=== PATIENT | male | born 1955 | race Caucasian/White ===

== ENCOUNTER → 2017-01-11 | Outpatient (CLI) | payer OTHER ==
[~2017-01-11] VITALS: Ht 177.8 cm; Wt 92.0 kg
[~2017-01-11] MED LIST: ASPI-232 PO; ATOR-22 PO; CLBCRM30 EXT; EZET10TA63 PO; FENO160T PO; FLM4 PO; GLIM2TAB2 PO; LISI-789 PO; METF500T5 PO; MODA1TAB PO; MULT-506 PO; PARO1TAB29 PO; PRLSR20 PO; PSYL55.43; SITA100T3 PO; SOLI5TAB2 PO
[2017-01-11 15:17] VITALS: BP 136/87; PULSE 92; Ht 177.8 cm; Wt 92.0 kg
== END | disposition home or self-care (01) ==
LOC: C.NEUR 14:29
PROVIDERS: ATTEND Physician Assistant
DX: G47.33 Obstructive sleep apnea (adult) (pediatric) (principal); G47.10 Hypersomnia, unspecified

== ENCOUNTER → 2018-01-17 | Outpatient (CLI) | payer OTHER ==
[~2018-01-17] VITALS: Ht 177.8 cm; Wt 109.2 kg
[2018-01-17 15:49] VITALS: BP 122/78; PULSE 101; Ht 177.8 cm; Wt 109.2 kg
== END | disposition home or self-care (01) ==
LOC: C.NEUR 15:21
PROVIDERS: ATTEND Internal Medicine Pulmonary Disease
DX: G47.33 Obstructive sleep apnea (adult) (pediatric) (principal); G47.10 Hypersomnia, unspecified; G47.30 Sleep apnea, unspecified; E66.9 Obesity, unspecified

== ENCOUNTER 2018-11-03 04:56 | Inpatient (IN) ==
--- NOTE | 2018-09-23 14:48 | Anesthesiology Consultation ---
Date of Service September 23, 2018 Assessment & Plan (1) Encounter for pre-operative examination: Chart Review Chart Review: Acceptable Risk for Surgery and Patient seen in Pre Admission Testing Teaching & Discussion Instructed NPO after midnight before surgery, except medications with 15 cc of water. Medication instructions provided according to the PAT guidelines. History Surgery Operation Date: 11/03/18 09:00 Proposed Procedures p Left Total Knee Arthroplasty - Seven Wing MD Height/Weight Height: 5 ft 9 in Weight: 108.2 kg Allergies Allergy/AdvReac Type Severity Reaction Status Date / Time No Known Allergies Allergy Unknown Verified 09/23/18 07:36 Medications Home Medications Medication Instructions Recorded Confirmed Last Taken aspirin [Aspir-Low] 81 mg PO QAM 09/23/18 09/23/18 Unknown atorvastatin 40 mg PO 09/23/18 09/23/18 Unknown dulaglutide [Trulicity] 1 dose SUBCUT WK 09/23/18 09/23/18 Unknown empagliflozin [Jardiance] 10 mg PO QAM 09/23/18 09/23/18 Unknown fenofibrate 160 mg PO HS 09/23/18 09/23/18 Unknown fesoterodine [Toviaz] 8 mg PO QAM 09/23/18 09/23/18 Unknown finasteride 5 mg PO QAM 09/23/18 09/23/18 Unknown glimepiride 2 tab PO QAM 09/23/18 09/23/18 Unknown lisinopril 2.5 mg PO QAM 09/23/18 09/23/18 Unknown metformin 2 tab PO BID 09/23/18 09/23/18 Unknown modafinil 200 mg PO QAM 09/23/18 09/23/18 Unknown omega 0-xla-stu-fish oil [Fish Oil] 2 cap PO HS 09/23/18 09/23/18 Unknown omeprazole 20 mg PO QAM 09/23/18 09/23/18 Unknown sertraline 50 mg PO QAM 09/23/18 09/23/18 Unknown tamsulosin [Flomax] 0.4 mg PO 09/23/18 09/23/18 Unknown Past Medical History Medical History BPH (benign prostatic hyperplasia) Cancer KIDNEY CANCER, S/P NEPHRECTOMY 2007 Cardiac murmur " A CHILD" PER PT, BUT I/ MURMUR NOTED ON EXAM, MILD AR ON 2016 STRESS TEST. Depression Diabetes mellitus, type 2 GERD (gastroesophageal reflux disease) Gout Hearing deficit Hyperlipidemia Hypertension Pt denies--on Lisinopril for kidney protection 2/2 diabetes Osteoarthritis Sleep apnea CPAP Past Family History Family History Mother Family history of diabetes mellitus Father Family history of diabetes mellitus Past Surgical History Surgical History History of adenoidectomy History of carpal tunnel release History of colonoscopy History of herniorrhaphy INGUINAL History of nephrectomy LEFT History of repair of rotator cuff RT/LEFT History of tonsillectomy Hx of vasectomy Past Anesthesia History No Hx of Anesthesia Complications and No Family Hx of Anesthesia Complications History of PONV No Motion Sickness Screening History of Motion Sickness: Yes Social History Smoking Status: Never smoker Do You Dip or Chew Tobacco: No Hx Alcohol Use: No Hx Substance Use: No substance use type: does not use Exercise / Class Metabolic Activity II 4-5 Yardwork/Stairs/Walk up hill (no CP or SOB with stairs, yardwork.) Review of Systems Pt denies any recent chest pain, shortness of breath, palpitations, cough, fever or URI. Pt had stomach flu week of 09/16/18 Physical Exam Vital Signs BP: 109/69 P: 85 SPO2: 96% RA T: 98.2 F R: 20 ENMT Mouth: no dental restorations, no chipped teeth and no loose teeth Thyromental Distance: > or= 3.5 Finger Breadths (4) Mallampati Class: III Neck normal visual inspection; neck extension not limited Respiratory normal respiratory effort Auscultation: lungs clear to auscultation bilaterally and + diminished lung sounds (slightly, B/L, more diminished in bases) Cardiovascular Rate/Rhythm: regular rate and regular rhythm Heart Sounds: + murmur (I/ systolic, mitral/tricuspid area) Vessels: no carotid bruit Extremities: no edema Testing Electrocardiogram Date: 09/23/18 Findings: + NSR @ (84) Septal infarct, cited on or before 05/19/14. Chest X-Ray Date: 09/23/18 Findings: + NAD Stress Test Date: 11/28/15 Resting EF: 60-64% The stress echo is negative for inducible ischemia by ECG & ECHO criteria. Patient denied chest discomfort reporting only shortness of breath at peak exercise. The qualitative LV ejection fraction is 60-64% (normal). The left ventricular systolic function is normal. The left ventricular cavity size is normal. The LV wall thickness is moderately increased (concentric). There is no left ventricular mural thrombus. Mild AR. Laboratory Results Blood Type AB Positive 09/23/18 15: Antibody Screen NEGATIVE 09/23/18 15: PT 10.0 Seconds (9.0-12.0) 09/23/18 15: INR 1.0 (0.9-1.1) 09/23/18 15: APTT 23.2 Seconds (21.0-31.0) 09/23/18 15:20 09/15/18 WBC: 6.4 H/H: 16.1/48.1 PLATELETS: 162 SODIUM: 141 POTASSIUM: 4.6 CHLORIDE: 105 CO2: 22 BUN: 34 CREATININE: 1.5 GLUCOSE: 106 UA: WNL
--- NOTE | 2018-09-23 14:49 | PAT Medication Instructions ---
Medication Instructions Date of Service September 23, 2018 Home Medications aspirin [Aspir-Low] 81 mg PO QAM atorvastatin 40 mg PO HS dulaglutide [Trulicity] 1 dose SUBCUT WK empagliflozin [Jardiance] 10 mg PO QAM fenofibrate 160 mg PO HS fesoterodine [Toviaz] 8 mg PO QAM finasteride 5 mg PO QAM glimepiride 2 tab PO QAM lisinopril 2.5 mg PO QAM metformin 2 tab PO BID modafinil 200 mg PO QAM omega 9-qos-hso-fish oil [Fish Oil] 2 cap PO HS omeprazole 20 mg PO QAM sertraline 50 mg PO QAM tamsulosin [Flomax] 0.4 mg PO HS Continue as directed dulaglutide [Trulicity] 1 dose SUBCUT WK STOP taking 2 weeks before surgery omega 2-mim-yvt-fish oil [Fish Oil] 2 cap PO HS STOP taking 48 hours before surgery fenofibrate 160 mg PO HS DO NOT take the morning of surgery empagliflozin [Jardiance] 10 mg PO QAM fesoterodine [Toviaz] 8 mg PO QAM finasteride 5 mg PO QAM glimepiride 2 tab PO QAM lisinopril 2.5 mg PO QAM metformin 2 tab PO BID modafinil 200 mg PO QAM Take morning of surgery With a small sip of water, OTHERWISE NOTHING TO EAT OR DRINK AFTER MIDNIGHT: aspirin [Aspir-Low] 81 mg PO QAM omeprazole 20 mg PO QAM sertraline 50 mg PO QAM Take evening before surgery atorvastatin 40 mg PO HS metformin 2 tab PO BID tamsulosin [Flomax] 0.4 mg PO HS Other Notes If you have any questions please call us at [phone] or [phone] or [phone] or [phone]
--- NOTE | 2018-09-23 15:44 | XRay Report ---
XR chest Pre-admission PA/Lat CLINICAL HISTORY: pat preoperative evaluation COMPARISON STUDY: 05/19/2014 FINDINGS: Lungs are clear. Small nodular density right midlung unchanged to slightly diminished in si ze. No focal infiltrate. No cardiac enlargement. IMPRESSION: No acute process. The above report was generated using voice recognition software. It may contain grammatical, syntax or spelling errors. Electronically signed by: Jamil Morgan M.D. 09/23/2018 3:43 PM
[2018-09-23 16:03] LABS: Partial Thromboplastin Ratio 0.9; Partial Thromboplastin Time 23.2 Seconds (21.0-31.0)
--- NOTE | 2018-11-02 20:50 | History and Physical Report ---
DATE OF ADMISSION: 11/03/2018 CHIEF COMPLAINT: Left knee pain. HISTORY OF PRESENT ILLNESS: This is a 63-year-old male patient of Dr. Wing'dave complaining of chronic left knee pain, longstanding, now progressively getting worse. The patient has failed conservative treatment including the use of a wrap and the use of Tylenol. He has been diagnosed with end-stage osteoarthritis per clinical and radiographic exams. He has failed conservative treatments. He has increased pain with weightbearing activities and his pain does interfere with his activities of daily living. PAST MEDICAL HISTORY: Heart murmur, hypercholesterolemia, sleep apnea with use of CPAP, diabetes mellitus, kidney failure secondary to cancer. SOCIAL HISTORY: Nonsmoker, nondrinker. PAST SURGICAL HISTORY: Both shoulders and kidney. FAMILY HISTORY: Noncontributory. REVIEW OF SYSTEMS: Chronic left knee pain and instability. Otherwise, denies any shortness of breath, chest pain, nausea, vomiting or any other joint complaints. MEDICATIONS: Modafinil daily, sertraline daily, lisinopril, Jardiance, metformin, glimepiride, finasteride, Toviaz, omeprazole, aspirin, vitamin daily, fish oil daily, Trulicity injection Sundays only, fenofibrate, Flomax, atorvastatin, metformin, and fish oil. Dosages will be provided on admission. ALLERGIES: No known drug allergies. PHYSICAL EXAMINATION: GENERAL: Well-developed, well-nourished 63-year-old male in no acute distress. He is alert and oriented x3 and pleasant. HEENT: Normocephalic, atraumatic. Extraocular motions are intact. Pupils are equal and reactive to light. HEART: Regular rate and rhythm with 1/6 murmur noted. LUNGS: Clear. ABDOMEN: Soft and nontender. Bowel sounds present. EXTREMITIES: Left knee reveals a varus deformity with medial joint line tenderness. He has limited range of motion of 0-125 degrees with crepitation. He has a mild effusion. He has 4/5 strength with pain. Neurologically and neurovascularly, he is intact in his left lower extremities. DIAGNOSES: Left knee end-stage osteoarthritis, history of heart murmur, hypercholesterolemia, sleep apnea with the use of CPAP, diabetes mellitus, left kidney failure secondary to kidney cancer. PLAN: The patient was advised of his diagnoses. Indications, risks, benefits, postop course have all been reviewed. The patient wished to proceed with a left total knee arthroplasty. Necessary consent forms, preoperative testing and clearances will be obtained.
[2018-11-03] MEDS: LR 500ML BOLUS, THEN 15ML/HR IV SCH ×3 (05:37→09:54)
[2018-11-03] MEDS ORDERED: ROPIVACAINE 0.5% HCL/PF 150 MG, BUPIVACAINE 0.5% MPF 30 ML, EPINEPHrine 30MG/30ML (OR U... INFIL SCH (06:00)
[2018-11-03] MEDS ORDERED: GABAPENTIN 300 MG x 2 PO SCH (06:00)
[2018-11-03] MEDS ORDERED: FAMOTIDINE 20 MG TAB PO SCH (06:00)
[2018-11-03] MEDS ORDERED: ACETAMINOPHEN 500 MG TAB PO SCH (06:00)
[2018-11-03] MEDS ORDERED: CEFAZOLIN 2000MG 2,000 MG/15 ML SYR IV SCH (06:00)
[2018-11-03] MEDS ORDERED: TRANEXAMIC ACID 1,000 MG **IV Pre-op IV SCH (06:00)
[2018-11-03] MEDS ORDERED: METOCLOPRAMIDE HCL 10 MG TABLET PO SCH (06:00)
[2018-11-03] MEDS ORDERED: TRANEXAMIC ACID 1,000 MG **IV Intra-op IV SCH (06:30)
[2018-11-03] MEDS ORDERED: ROPIVACAINE 0.5% 5 MG/ML 30 ML VIAL ONE (06:36)
[2018-11-03] MEDS ORDERED: BUPIVACAINE 0.5 % 5 MG/1 ML PF 10ML VIAL ONE (06:36)
[2018-11-03] MEDS ORDERED: BACITRACIN INJ 50,000 UNIT VIAL ONE (06:37)
[2018-11-03] MEDS ORDERED: BUPIVACAINE 0.5 % 5 MG/1 ML MPF 30ML VIAL ONE (06:37)
[2018-11-03] MEDS ORDERED: ORTHO JOINT ANESTHETIC ONE (06:37)
[2018-11-03] MEDS ORDERED: POVIDONE-IODINE OP SOLN 30 ML BTL ONE (06:37)
[2018-11-03] MEDS ORDERED: fentaNYL citrate 100 MCG/2 ML VIAL ONE (06:49)
[2018-11-03] MEDS ORDERED: MIDAZOLAM HCL 1 MG/ML 2ML VIAL ONE ×2 (06:49→08:00)
--- NOTE | 2018-11-03 07:09 | History & Physical Bridge Note ---
Date of Service November 03, 2018 History & Physical Bridge Note I have examined the patient, reviewed the History & Physical and in the interval since the performance of the History & Physical I have noted the following changes of clinical significance: no changes noted
[2018-11-03] MEDS ORDERED: ATROPINE SULFATE 0.1 MG/ML 10ML SYR IV PRN ×2 (08:03→10:32)
[2018-11-03] MEDS ORDERED: ePHEDrine sulfate 50 MG/ML AMP IV PRN ×2 (08:03→10:32)
--- NOTE | 2018-11-03 09:08 | Post Operative Brief Note ---
Immediate Post Op Note v1 Date of Surgery November 03, 2018 Pre & Post Diagnosis Operation Date: 11/03/18 07:00 Pre-Op Diagnosis: Left knee end-stage osteoarthritis Post-Op Diagnosis: Left knee end-stage osteoarthritis Procedure Operation Date: 11/03/18 07:00 Actual Procedures p Left Total Knee Arthroplasty,lateral release, Mike(Left) - Seven Wing MD Surgeon Seven Wing MD Supplier Manager Jamil SOLORZANO Estimated Blood Loss 5 Findings Consistent with Post-Op Diagnosis Drains Hemovac Drain (10 MONEGASQUE DUAL) Anesthesia Type Spinal MAC Complications none Disposition Accompanied Patient To Recovery: No Disposition: Recovery Room Overlapping Procedure I was present for: the critical portions of procedure.
[2018-11-03] MEDS ORDERED: ONDANSETRON INJ 2 MG/ML 2 ML VIAL IV PRN (10:26)
[2018-11-03] MEDS ORDERED: NALOXONE HCL 0.4 MG/1 ML VIAL/CARP IV PRN (10:26)
[2018-11-03] MEDS ORDERED: BISACODYL 10 MG SUPP PR PRN (10:26)
[2018-11-03] MEDS ORDERED: MAGNESIUM HYDROXIDE SUSP 30 ML UDC PO PRN (10:26)
[2018-11-03] MEDS ORDERED: METOCLOPRAMIDE HCL INJ 5 MG/ML 2 ML VIAL IV PRN (10:26)
--- NOTE | 2018-11-03 10:31 | Anesthesiology Progress Note ---
Date of Service November 03, 2018 Anesthesia Post Procedure Vital Signs Vital Signs: Temp Pulse Pulse Resp BP Pulse Ox 11/03/18 10:15 36.3 C L 81 13 119/74 95 11/03/18 10:05 85 24 111/71 90 11/03/18 09:55 78 15 110/80 95 11/03/18 09:45 83 15 127/70 93 11/03/18 09:35 74 15 111/68 93 11/03/18 09:25 36.0 C L 84 22 112/63 97 11/03/18 05:22 36.4 C L 75 20 148/82 H 95 Notes Mental Status: alert / awake / arousable and participated in evaluation Patient Amnestic to Procedure: Yes Nausea / Vomiting: adequately controlled Pain: adequately controlled Airway Patency, RR, SpO2: stable & adequate BP & HR: stable & adequate Hydration State: stable & adequate Neuraxial Anesthesia: was administered and sensory block is resolving Anesthetic Complications: no major complications apparent
--- NOTE | 2018-11-03 10:33 | Operative Report ---
Post Operative Report Pre & Post Diagnosis Operation Date: 11/03/18 07:00 Pre-Op Diagnosis: Left knee end-stage osteoarthritis Post-Op Diagnosis: Left knee end-stage osteoarthritis Procedure Operation Date: 11/03/18 07:00 Actual Procedures p Left Total Knee Arthroplasty, cemented, Mike(Left) - Seven Wing MD Surgeon Seven Wing MD Information Systems Auditor Jamil SOLORZANO Estimated Blood Loss 5 Findings Consistent with Post-Op Diagnosis Specimens Bone cuts Anesthesia Type Spinal MAC Complications none Disposition Accompanied Patient To Recovery: No Disposition: Recovery Room Indications 60-year-old male with progressive osteoarthritis in his left knee. Bone-on- bone on weightbearing films and medial compartment. He has a varus knee. Description of Procedure Patient taken to the operating room placed supine on the operating table and anesthetized under spinal MAC regional block anesthesia. Exam under anesthesia demonstrated laxity LCL tight medial compartment good range of motion. A pneumatic tourniquet was placed about the thigh of the left lower extremity. The left lower extremity was prepped and draped in usual fashion. Leg was elevated exsanguinated with an Esmarch bandage and the pneumatic was raised to 325 mm mercury. An anterior incision was made across the left knee. The skin was incised longitudinally subcutaneous flaps were elevated and an incision was made through the medial retinaculum extending up into the mid third of the quadriceps tendon and extended down to the medial tibial tubercle. Intra- articular findings demonstrated [id number] medial compartment. He had multiple loose bodies. There was a grade 4 trochlear lesion intact cartilage on the patella intact lateral compartment intact cruciate ligaments. The knee was exposed by excising the infrapatellar fat pad, excising the meniscal remnants and cruciate ligaments or remnants of the ligaments. Any inflamed synovial tissue was resected. The fat pad over the anterior femur was resected for placement of the component in that area. The lateral synovial bands were release. Appropriate releases were performed to balance ligaments. This included minor pie crusting MCL medial and posterior medial releases. The femur was exposed. The custom femoral cutting block was pinned in position. The distal femoral cutting block was applied. The distal femoral cut was made with the oscillating saw. The size 10 4-in-1 cutting block was placed. The anterior and posterior chamfer cuts were made. The knee was extended and a subperiosteal peel lateral release was performed around the patella. The patella width was measured and width was reproduced using freehand cut technique. The 35 x 9 millimeter symmetrical patella was used. 3 drill holes are made for the pegs. The tibia was exposed. A custom tibial cutting block was positioned and drill holes were made for the cutting guide. Cutting guide was placed and the proximal cut was made with the oscillating saw. All osteophytes were resected. The lamina delivery rn was used to assess ligamentous balance and the ligaments were balanced in extension and flexion. The tibia was reexposed and measured for a size F tibial component. This was externally rotated in line with the tibial tubercle and the fixation pins were drilled. The proximal tibia was fashioned with the drill and punch. The size 10 CR femoral trial was inserted. The trial MC inserts were used. The 13 mm insert gave balanced ligaments through full range of motion. The patella tracked slightly laterally so we will had to go ahead and do a formal lateral release leaving as much synovium intact as possible. Patella tracking recess and patella tracked centrally. the trials were removed. The orthomix anesthetic cocktail was injected per protocol. The knee was then copiously irrigated with pulsatile lavage antibiotic solution with bacitracin. The final components were cemented with Simplex cement. The final components were Mike [employer] persona left total knee arthroplasty size 10 CR femur, F tibia, MC 13 mm tibial insert and 35 x 9 symmetrical patella. While the cement cured with the knee in full extension the Betadine soak was used per protocol. After the cement cured , the knee joint was copiously irrigated with antibiotic solution with bacitracin. 2 drains were brought out laterally and connected to a Hemovac. The quadriceps tendon and medial retinaculum were closed with interrupted figure -of-eight #1 Vicryl sutures. The knee was taken through a full range of motion and repair was secure. The subcutaneous tissues were closed with 2-0 Vicryl sutures and skin was closed with nadine. Sterile Silverlon dressings were applied and the patient tolerated the procedure well. Jamil SOLORZANO my physician campaign assistant, assisted in soft tissue retraction instrument management leg positioning the closure and will participate in the postoperative care of the patient. I attest to the content of the Intraoperative Record and any orders documented therein. Any exceptions are noted below.
[2018-11-03] MEDS ORDERED: PHARMACY GLYCEMIC MGMT CONSULT PRN (10:37)
--- NOTE | 2018-11-03 10:37 | XRay Report ---
LEFT KNEE 2 VIEWS History: Left total knee arthroplasty. Degenerative arthritis. Postop. FINDINGS: The patient is status post a left total knee arthroplasty. The hardware is intact. No fract ure or dislocation. Skin nadine and surgical drains are in place. IMPRESSION: Left total knee arthroplasty. No evidence for hardware complication. Electronically signed by: Rene Gold M.D. 11/03/2018 10:35 AM
[2018-11-03] MEDS: SODIUM CHLORIDE 0.9% 1000ML 1,000 ML IV SCH ×2 (11:06→20:32)
[2018-11-03] MEDS ORDERED: CARBOHYDRATES FOR HYPOGLYCEMIA PO PRN (11:22)
[2018-11-03] MEDS ORDERED: DEXTROSE 50% 50 ML SYRINGE IV PRN (11:22)
[2018-11-03] MEDS ORDERED: GLUCOSE 10 TABS/TUBE PO PRN (11:22)
[2018-11-03] MEDS ORDERED: GLUCAGON FOR INJ 1 MG VIAL IM PRN (11:22)
[2018-11-03] MEDS ORDERED: GLUCOSE 40% GEL 15 GM TUBE PO PRN (11:22)
--- NOTE | 2018-11-03 11:47 | Pharmacy Report ---
Glycemic Control Consultation - Date of Service November 03, 2018 - Scope Scope: Glycemic Pharmacist consulted by JEANINE Vega on 11/03/18 for glycemic control and to write orders per [facility] inpatient glycemic control protocol - Objective Weight: 105.37 kg Accuchecks BSG (last 24hrs): 11/03/18 11/03/18 11/03/18 05:10 09:29 10:59 POC Glucose 128 H 100 H 95 - Recent Pertinent Medications Outpatient Anti-diabetic Regimen: * Trulicity 0.75mg weekly * Glimepiride 8mg daily * Jardiance 10mg daily * Metformin ER 1000mg BID * A1c = 7.1 % (09/22/18) Risk Factors for Insulin Resistance: * Infection: Ancef 2g IV q8 x 2 doses post-op * IVF: NS @ 100 mL/hr * Recent Surgery: s/p L total knee arthroplasty * Diet: T2DM - Assessment & Plan Assessment & Plan: ASSESSMENT: * Patient admitted following L TKA. Unable to find any records of steroid being administered pre/intra-op and none ordered post-op. 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 Glycemic control improved from 7.9% to 7.1% on multiple diabetic agents, including Trulicity but no insulin therapy. * At time of consult review, BG ranging 95-128. Therefore, will only cover with Novolog at this time using modified weight-based dosing (do not want to be too aggressive, but patient will likely need more than stress of 1 since all home DM meds held). PLAN FOR INPATIENT GLYCEMIC CONTROL: * Holding outpatient oral diabetes medications * Bolus insulin * NovoLog per scale ACHS or Q6hrs while NPO * Goal Range: Low 110 mg/dL - High 140 mg/dL * Correction Factor: 35 mg/dL/unit * Nutritional / Prandial insulin per carb ratio of 1 unit per 10 grams CHO consumed DISCHARGE RECOMMENDATIONS: * Patient is well controlled as an outpatient. Recommend to resume outpatient regimen at discharge. * Please note that the plan above was derived based on current level of insulin resistance and hospital stress. These recommendations are appropriate for inpatient admission only. Plan of care upon discharge will need to be reassessed to avoid potential outpatient hypo/hyperglycemia. Thank you.
[2018-11-03] MEDS: INSULIN ASPART 100 UNITS/ML 3 ML PEN SC SCH ×3 (11:54→21:24)
--- NOTE | 2018-11-03 12:17 | Consultation ---
Date of Consultation November 03, 2018 Assessment & Plan (1) S/P total knee arthroplasty: pain well controlled PT/OT, discharge planning per ortho will follow for bowel function encouraged to use ISB to titrate off of oxygen (2) Diabetes type 2, controlled: patient takes Trulicity once a week, usually on Saturday, forgot to take yesterday placed communication order that he can take tomorrow, to bring in from home while here, will use Novolog SS and diabetic diet would resume all home medications on discharge (3) Dyslipidemia: continue Fenofibrate and Lipitor (4) BPH (benign prostatic hyperplasia): continue finasteride and flomax History of Present Illness Reason for Consultation: medical management Requesting Physician: Dr. Wing Attending Physician: Seven Wing MD History of Present Illness 63 yo male with history of BPH, DM type II, dyslipidemia who is admitted today after having left TKA with Dr. Wing. No complications, patient feels well, ate some lunch already. Pain is minimal. He said that he was not really having severe pain prior to the surgery. He tore his meniscus towards the end of the summer and when he saw Dr. Wing in the office it was apparent that he had severe osteoarthritis on imaging. It was pointless to fix the meniscus and it would make more sense to replace the knee. The patient did admit that he would get knee swelling and stiffness from time to time. 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 His diabetes is well managed on Trulicity, Jardiance, Glimepiride and Metformin. He takes Lisinopril for renal protection. 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 He follows a diabetic diet and takes his medications and reports that sugars are well controlled. We discussed that he would be on Novolog while admitted if needed. Allergies Allergy/AdvReac Type Severity Reaction Status Date / Time No Known Allergies Allergy Unknown Verified 11/03/18 05:21 Home Medications Home Medications Medication Instructions Recorded Confirmed Type aspirin [Aspir-Low] 81 mg PO QAM 09/23/18 11/03/18 History atorvastatin 40 mg PO HS 09/23/18 11/03/18 History dulaglutide [Trulicity] 1 dose SUBCUT WK 09/23/18 11/03/18 History empagliflozin [Jardiance] 10 mg PO QAM 09/23/18 11/03/18 History fenofibrate 160 mg PO HS 09/23/18 11/03/18 History fesoterodine [Toviaz] 8 mg PO QAM 09/23/18 11/03/18 History finasteride 5 mg PO QAM 09/23/18 11/03/18 History glimepiride 2 tab PO QAM 09/23/18 11/03/18 History lisinopril 2.5 mg PO QAM 09/23/18 11/03/18 History metformin 2 tab PO BID 09/23/18 11/03/18 History modafinil 200 mg PO QAM 09/23/18 11/03/18 History omega 1-tye-hqe-fish oil [Fish Oil] 2 cap PO HS 09/23/18 11/03/18 History omeprazole 20 mg PO QAM 09/23/18 11/03/18 History sertraline 50 mg PO QAM 09/23/18 11/03/18 History tamsulosin [Flomax] 0.4 mg PO HS 09/23/18 11/03/18 History Patient History Medical History BPH (benign prostatic hyperplasia) Cancer KIDNEY CANCER, S/P NEPHRECTOMY 2007 Cardiac murmur " A CHILD" PER PT, BUT I/ MURMUR NOTED ON EXAM, MILD AR ON 2016 STRESS TEST. Depression Diabetes mellitus, type 2 GERD (gastroesophageal reflux disease) Gout Hearing deficit Hyperlipidemia Hypertension Pt denies--on Lisinopril for kidney protection 2/2 diabetes Osteoarthritis Sleep apnea CPAP Surgical History History of adenoidectomy History of carpal tunnel release History of colonoscopy History of herniorrhaphy INGUINAL History of nephrectomy LEFT History of repair of rotator cuff RT/LEFT History of tonsillectomy Hx of vasectomy Family History Mother Family history of diabetes mellitus Father Family history of diabetes mellitus Social History Current Living Situation: Spouse Other Information That Helps Us Care for You: No Feels Safe at Home: Yes Safety Concerns: Feels Safe At This Time Smoking Status: Never smoker Do You Dip or Chew Tobacco: No Hx Alcohol Use: No Hx Substance Use: No Beliefs That Will Affect Care: None Preferred Language: Ukrainian 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 Ability: 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 Review of Systems Constitutional: no fever, no chills, no sweats, no fatigue and no weakness Eyes: no diplopia, no discharge and no eye pain Ear, Nose, Mouth, Throat: no ear pain, no nasal discharge, no post nasal drip, no dry mouth and no sore throat Respiratory: no cough, no chest congestion, no dyspnea and no wheezing Cardiovascular: no chest pain, no dyspnea, no orthopnea, no syncope and no edema Gastrointestinal: no abdominal pain, no nausea, no vomiting, no constipation and no diarrhea/loose stools Genitourinary (Male): + urinary frequency and + urinary hesitancy; no dysuria, no difficulty urinating and no urinary incontinence Musculoskeletal: + joint pain (left knee, mild to moderate) and + swelling ( left knee); no back pain, no loss of height, no myalgia and no body aches Integumentary: no rash, no wounds, no skin swelling and no unusual bruising Neurologic: no gait abnormality, no unsteadiness, no paralysis, no loss of sensation, no tingling, no numbness, no tremor(s), no abnormal movements, no dizziness and no memory loss Psychiatric: no behavioral changes, no depression, no anxiety and no substance abuse Endocrine: no fatigue, no polydipsia, no polyphagia, no polyuria, no cold intolerance and no heat intolerance Physical Exam 2 Vital Signs (Past 24 Hours): Last Vital Signs Temp 36.5 C 11/03/18 10:30 Pulse 77 11/03/18 11:27 Resp 16 11/03/18 11:27 BP 144/85 H 11/03/18 11:27 Pulse Ox 97 11/03/18 11:27 Constitutional: WD/WN, vitals as above Eyes: PERRL, conjunctivae normal, anicteric sclerae ENMT: external ear and nose normal, oropharynx normal Neck: trachea midline, no thyromegaly Respiratory: normal respiratory effort, lungs clear to auscultation Cardiovascular: RRR, no murmur, no edema Gastrointestinal (Abdomen): normal bowel sounds, soft, nontender, no hepatosplenomegaly Musculoskeletal: no cyanosis or clubbing, extremities motor strength 5/5 Extremities: + limited ROM of extremities (left knee, swollen, immobilized, drain in place) Skin: no rashes, warm and dry Neurologic: patellar DTR's 2+ bilat, sensation intact and PERRL, EOMI, accommodation nl, no face palsy, no dysarthria Psychiatric: A+Ox3, euthymic affect Lymphatic: no cervical or axillary lymphadenopathy Results & Data Medications Administered Current Inpatient Medications Acetaminophen (Tylenol) 1,000 mg PO Q8H AJ Stop: 12/03/18 13:59 Aspirin (Ecotrin Ectab) 81 mg PO BID AJ Stop: 12/03/18 20:59 Atorvastatin Calcium (Lipitor) 40 mg PO HS AJ Stop: 12/03/18 20:59 Atropine Sulfate (Atropine Sulfate) 0.5 mg IV Q1M PRN PRN Reason: PACU Use-HR<40 &/or Bradycardi Stop: 11/03/18 15:32 Bisacodyl (Dulcolax) 10 mg AK Q6H PRN PRN Reason: Constipation Stop: 12/03/18 10:25 Celecoxib (Celebrex) 200 mg PO BID AJ Stop: 12/03/18 20:59 Dextrose (Dextrose 50%) 25 - 50 ml IV UD PRN; Protocol PRN Reason: Hypoglycemia Protocol Stop: 12/03/18 11:21 Diphenhydramine HCl (Benadryl Capsule) 25 mg PO Q8H PRN PRN Reason: Itching Stop: 12/03/18 10:25 Docusate Sodium (Colace) 100 mg PO BID AJ Stop: 12/03/18 20:59 Ephedrine Sulfate (Ephedrine Sulfate) 5 mg IV Q5M PRN PRN Reason: PACU Use Only-SBP<90 mmHg Stop: 11/03/18 15:32 Fenofibrate (Tricor) 145 mg PO HS AJ Stop: 12/03/18 20:59 Finasteride (Proscar) 5 mg PO QAM AJ Stop: 12/04/18 08:59 Glucagon (Glucagen) 1 mg IM UD PRN; Protocol PRN Reason: Hypoglycemia Protocol Stop: 12/03/18 11:21 Glucose (Glucose 40%) 15 - 30 gm PO UD PRN; Protocol PRN Reason: Hypoglycemia Protocol Stop: 12/03/18 11:21 Glucose (Dex4 Glucose) 4 - 8 tabs PO UD PRN; Protocol PRN Reason: Hypoglycemia Protocol Stop: 12/03/18 11:21 Sodium Chloride (Nss 1000ml) 1,000 mls @ 100 mls/hr IV .Q10H [facility] Stop: 11/04/18 06:00 Last Admin: 11/03/18 11:06 Dose: 100 mls/hr Cefazolin Sodium (Ancef 2000mg) 2,000 mg in 15 mls @ 3.75 mls/min IV Q8H [facility]; Protocol Stop: 11/03/18 23:03 Insulin Aspart (Novolog Flexpen) 0 units SC ACHS [facility]; Protocol Stop: 12/03/18 11:29 Last Admin: 11/03/18 11:54 Dose: 2 units Lisinopril (Zestril) 2.5 mg PO [facility] Stop: 12/04/18 08:59 Magnesium Hydroxide (Milk Of Magnesia) 30 ml PO Q6H PRN PRN Reason: Constipation Stop: 12/03/18 10:25 Metoclopramide HCl (Reglan) 10 mg IV Q6H PRN PRN Reason: Nausea And Vomiting Stop: 12/03/18 10:25 Miscellaneous (Order Awaiting Action) [facility] Stop: 12/04/18 08:59 Miscellaneous (Carbohydrates For Hypoglycemia) 15 - 30 gm PO UD PRN PRN Reason: Hypoglycemia Treatment Stop: 12/03/18 11:21 Miscellaneous Information (Consult Glycemic Management Pharmacy) 1 ea N/A UD PRN PRN Reason: consult Stop: 12/03/18 10:36 Modafinil (Provigil) 200 mg PO [facility] Stop: 12/04/18 08:59 Multivitamins (Multivitamin Tab) 1 tab PO [facility] Stop: 12/04/18 08:59 Naloxone HCl (Narcan) 0.1 mg IV Q5M PRN PRN Reason: Oversedation/Resp Depression Stop: 12/03/18 10:25 Ondansetron HCl (Zofran) 4 mg IV Q6H PRN PRN Reason: Nausea And Vomiting Stop: 12/03/18 10:25 Oxycodone HCl (Roxicodone Immediate Rel) 5 - 10 mg PO Q4H PRN PRN Reason: Pain Stop: 11/17/18 10:25 Pantoprazole Sodium (Protonix) 40 mg PO QAM AJ Stop: 12/04/18 08:59 Sennosides (Senokot) 17.2 mg PO HS AJ Stop: 12/03/18 20:59 Sertraline HCl (Zoloft) 50 mg PO QAM AJ Stop: 12/04/18 08:59 Tamsulosin HCl (Flomax) 0.4 mg PO HS AJ Stop: 12/03/18 20:59 Tramadol HCl (Ultram) 50 - 100 mg PO Q4H PRN PRN Reason: Pain Stop: 12/03/18 10:25
[2018-11-03] MEDS ORDERED: MoRPHine SULFATE 4 MG/ML 1 ML CARP\\VIAL IV PRN (13:13)
[2018-11-03] MEDS: ACETAMINOPHEN 500 MG TAB PO SCH ×2 (13:24→22:47)
[2018-11-03] MEDS: OXYCODONE HCL IR 5 MG TAB (IMMEDIATE RELEASE) PO PRN ×2 (14:01→20:05)
[2018-11-03] MEDS: CEFAZOLIN 2000MG 2,000 MG/15 ML SYR IV SCH ×2 (14:12→22:22)
[2018-11-03] MEDS: TRAMADOL HCL 50 MG TABLET PO PRN (17:20)
[2018-11-03] MEDS: SENNA 8.6 MG TAB PO SCH (20:06)
[2018-11-03] MEDS: ASPIRIN 81 MG ECTAB PO SCH (20:07)
[2018-11-03] MEDS: CeleBREX 200 MG CAP PO SCH (20:07)
[2018-11-03] MEDS: FENOFIBRATE NANOCRYSTALLIZED 145 MG TABLET PO SCH (20:07)
[2018-11-03] MEDS: ATORVASTATIN 40 MG TAB PO SCH (20:08)
[2018-11-03] MEDS: DOCUSATE SODIUM 100 MG CAP PO SCH (20:08)
[2018-11-03] MEDS: TAMSULOSIN HCL 0.4 MG CAP PO SCH (20:08)
[2018-11-04] MEDS: OXYCODONE HCL IR 5 MG TAB (IMMEDIATE RELEASE) PO PRN ×5 (00:42→21:01)
[2018-11-04] MEDS: ACETAMINOPHEN 500 MG TAB PO SCH ×3 (06:24→21:06)
[2018-11-04 06:29] LABS: Hemoglobin 14.3 g/dL (14.0-18.0); Mean Corpuscular Hgb Conc 33.3 g/dL (32-36); Mean Platelet Volume 11.5 fL (7.4-10.4); Platelet Count 147 K/uL (130-400); RDW Coefficient of Variation 13.8 % (11.5-14.5); RDW Standard Deviation 45.2 fL (36.4-46.3); Red Blood Count 4.83 M/uL (4.7-6.1); White Blood Count 8.14 K/uL (4.8-10.8)
[2018-11-04 07:03] LABS: BUN Creatinine Ratio 16.6 (10-20); Calcium 8.3 mg/dl (8.5-10.1); Est GFR (African American) 63.2; Est GFR (Non-African American) 54.5; Potassium 4.1 mmol/L (3.5-5.1)
--- NOTE | 2018-11-04 08:04 | Orthopedic Progress Note ---
Date of Service November 04, 2018 Assessment & Plan (1) Status post total left knee replacement: PT/OT protocols today. Weightbearing as tolerated. DVT prophylaxis with SCDs, DAVID hose, aspirin twice daily. Continue current pain regimen with morphine, oxycodone, acetaminophen. Medical management as per [facility] physician group hospitalist service. Discharge planning -patient will be talking to case management this morning about the possibility of home health PT for the first 2 weeks. Subjective Patient is postop day 1 status post left total knee arthroplasty. He is currently sitting up in bed. He is awake and alert and oriented. He states that his pain has been controlled but he had somewhat of a restless night due to not being able to sleep in the hospital bed. He has no other complaints at this time. He denies shortness of breath, chest pain, lightheadedness. He is noted to be tachycardic this morning. Hemoglobin is stable. Physical Exam 2 Vital Signs (Past 24 Hours): Last Vital Signs Temp 36.9 C 11/04/18 07:08 Pulse 111 H 11/04/18 07:08 Resp 18 11/04/18 07:08 BP 172/87 H 11/04/18 07:08 Pulse Ox 97 11/04/18 07:08 Physical Exam: Dressings are clean, dry, and intact. Neurovascular is intact. Toes are mobile. Calves are soft nontender. Hemovac drainage was 150 mL from the previous shift. Results & Data Laboratory Results 11/04/18 11/04/18 11/03/18 Range/Units 05:52 05:52 20:32 WBC 8.14 (4.8-10.8) K/uL RBC 4.83 (4.7-6.1) M/uL Hgb 14.3 (14.0-18.0) g/dL Hct 43.0 (42-52) % MCV 89.0 (80-100) fL MCH 29.6 (25-34) pg MCHC 33.3 (32-36) g/dL RDW Std Deviation 45.2 (36.4-46.3) fL RDW Coeff of Cheli 13.8 (11.5-14.5) % Plt Count 147 (130-400) K/uL MPV 11.5 H (7.4-10.4) fL Sodium 137 (136-145) mmol/L Potassium 4.1 (3.5-5.1) mmol/L Chloride 104 (98-107) mmol/L Carbon Dioxide 28 (21-32) mmol/L Anion Gap 5.0 (3-11) BUN 23 H (7-18) mg/dl Creatinine 1.37 (0.6-1.4) mg/dl Est Cr Clr Drug Dosing 66.0 ml/min Est GFR ( Amer) 63.2 Est GFR (Non-Af Amer) 54.5 BUN/Creatinine Ratio 16.6 (10-20) Glucose 134 H (70-99) mg/dl POC Glucose 121 H (70-99) Calcium 8.3 L (8.5-10.1) mg/dl 11/03/18 11/03/18 11/03/18 Range/Units 17:03 10:59 09:29 WBC (4.8-10.8) K/uL RBC (4.7-6.1) M/uL Hgb (14.0-18.0) g/dL Hct (42-52) % MCV (80-100) fL MCH (25-34) pg MCHC (32-36) g/dL RDW Std Deviation (36.4-46.3) fL RDW Coeff of Cheli (11.5-14.5) % Plt Count (130-400) K/uL MPV (7.4-10.4) fL Sodium (136-145) mmol/L Potassium (3.5-5.1) mmol/L Chloride (98-107) mmol/L Carbon Dioxide (21-32) mmol/L Anion Gap (3-11) BUN (7-18) mg/dl Creatinine (0.6-1.4) mg/dl Est Cr Clr Drug Dosing ml/min Est GFR ( Amer) Est GFR (Non-Af Amer) BUN/Creatinine Ratio (10-20) Glucose (70-99) mg/dl POC Glucose 149 H 95 100 H (70-99) Calcium (8.5-10.1) mg/dl
[2018-11-04] MEDS: INSULIN ASPART 100 UNITS/ML 3 ML PEN SC SCH ×4 (08:44→21:09)
[2018-11-04] MEDS: MULTIVITAMIN TAB PO SCH (08:45)
[2018-11-04] MEDS: PANTOprazole 40 MG TAB PO SCH (08:45)
[2018-11-04] MEDS: FINASTERIDE 5 MG TAB PO SCH (08:45)
[2018-11-04] MEDS: ASPIRIN 81 MG ECTAB PO SCH ×2 (08:45→21:05)
[2018-11-04] MEDS: DOCUSATE SODIUM 100 MG CAP PO SCH ×2 (08:45→21:05)
[2018-11-04] MEDS: LISINOPRIL 2.5 MG TAB PO SCH (08:46)
[2018-11-04] MEDS: SERTRALINE HCL 50 MG TABLET PO SCH (08:46)
[2018-11-04] MEDS: CeleBREX 200 MG CAP PO SCH ×2 (08:48→21:04)
[2018-11-04] MEDS: MODAFINIL 100 MG TAB PO SCH (08:50)
[2018-11-04] MEDS: TRAMADOL HCL 50 MG TABLET PO PRN ×2 (08:50→13:32)
[2018-11-04] MEDS ORDERED: LANTUS PER UNIT CHARGE SQ ONE (09:15)
--- NOTE | 2018-11-04 09:44 | Hospitalist Progress Note ---
Date of Service November 04, 2018 Assessment & Plan (1) S/P total knee arthroplasty: - pain monderately controlled - rec continuing around the clock tylenol, and oxy for breakthrough pain. - PT/OT, discharge planning per ortho - Continue to eval for bowel function, bowel regimen on board - GI ppx with omeprazole (2) Diabetes type 2, controlled: - Trulicity to be brought in from today, has not had family visit yet however. Dosing Trulicity once a week, usually on Saturday, forgot to take on 11/02. - while here, will use Novolog SS and diabetic diet - Resume metformin today, Cr. at 1.2, unknown baseline. Can resume glipizide upon discharge. (3) Dyslipidemia: - continue Fenofibrate and Lipitor (4) BPH (benign prostatic hyperplasia): - continue finasteride and flomax (5) HTN (hypertension): - BP elevated this morning and likely secondary to pain. Encouraged analgesia with prn meds as well as scheduled tylenol. - Continue lisinopril 2.5 mg daily. (6) HLD (hyperlipidemia): - Cont statin therapy Subjective The patient was seen and examined this morning. Pt states "Can't a froylan get any sleep here?!" His pain is moderate right now as he attempted to work with PT, however was only able to walk from the bed to the door. Pt denies residual numbness. He has not used the restroom today. He tolerated diet without difficulty and denies abdominal complaints. He wishes there was a way to get cold air into his room, and states the box fan isn't really helping. No fever, chills, cp, palpitation, flutter, sob, breathing difficulty, or cough. Genitourinary (Male): no difficulty urinating, no urinary frequency and no urinary incontinence Musculoskeletal: + joint pain (left knee, mild to moderate) and + swelling ( left knee); no back pain, no loss of height, no myalgia and no body aches Physical Exam 2 Vital Signs (Past 24 Hours): Last Vital Signs Temp 36.9 C 11/04/18 07:08 Pulse 111 H 11/04/18 07:08 Resp 18 11/04/18 07:08 BP 172/87 H 11/04/18 07:08 Pulse Ox 97 11/04/18 07:08 Physical Exam: General: awake, alert, no apparent distress, + overweight Head: Normocephalic, atraumatic ENT: PERRL, EOMI, no pharyngeal exudate, mucous membranes moist Chest: Clear to auscultation, on room air, no adventitious breath sounds Cardiac: Sinus tach, no murmur, no JVD, normal peripheral pulses, good capillary refill Abdominal: NABS x 4 quadrants, soft, nontender to palpation, no rebound, guarding or tenderness Extremities: RLE- knee with bandage c/d/i, ice pack on, drain in place, mild peripheral edema, nonpitting. Otherwise normal inspection, no peripheral edema or erythema, calfs nontender to palpation Psych: Normal mood and affect Neuro: AAO x 3, strength intact bilaterally and related 5/5, no motor deficits, speech is clear, no peripheral sensory deficits
--- NOTE | 2018-11-04 12:40 | Pharmacy Report ---
Pharmacy Glycemic Short Note 2 - Date of Service November 04, 2018 - Glycemic Short BSG Results (Last 24 hours): 11/03/18 11/03/18 11/04/18 17:03 20:32 05:52 Glucose 134 H POC Glucose 149 H 121 H 11/04/18 11/04/18 08:07 12:13 Glucose POC Glucose 185 H 140 H OUTPATIENT ANTIDIABETIC REGIMEN: * Trulicity 0.75mg weekly * Glimepiride 8mg daily * Jardiance 10mg daily * Metformin ER 1000mg BID * A1c = 7.1 % (09/22/18) ASSESSMENT: * Mr. Rojas is POD #1 s/p L TKA. He was given only 8 units of insulin yesterday with excellent BSG control. * Fasting BSG is elevated today. Will add a one time dose of Lantus to cover the patient while home meds remain on hold. * Will resume metformin today with dinner since Jhon is tolerating an oral diet and Scr is likely at baseline. PLAN FOR INPATIENT GLYCEMIC CONTROL: * Resume metformin 1000 mg PO BID (other PO meds can be resumed on discharge) * Basal insulin * Lantus 8 units SQ qAM x 1 dose * Bolus insulin - no change * NovoLog per scale ACHS or Q6hrs while NPO * Goal Range: Low 110 mg/dL - High 140 mg/dL * Correction Factor: 35 mg/dL/unit * Nutritional / Prandial insulin per carb ratio of 1 unit per 10 grams CHO consumed DISCHARGE RECOMMENDATIONS: * Patient is well controlled as an outpatient. Recommend to resume outpatient regimen at discharge. * Follows with [facility]. 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
[2018-11-04] MEDS: METFORMIN HCL 500 MG TAB PO SCH (18:04)
[2018-11-04] MEDS: TAMSULOSIN HCL 0.4 MG CAP PO SCH (21:05)
[2018-11-04] MEDS: ATORVASTATIN 40 MG TAB PO SCH (21:05)
[2018-11-04] MEDS: SENNA 8.6 MG TAB PO SCH (21:06)
[2018-11-04] MEDS: FENOFIBRATE NANOCRYSTALLIZED 145 MG TABLET PO SCH (21:07)
[2018-11-05] MEDS: OXYCODONE HCL IR 5 MG TAB (IMMEDIATE RELEASE) PO PRN ×2 (02:16→08:59)
[2018-11-05] MEDS: ACETAMINOPHEN 500 MG TAB PO SCH (05:18)
[2018-11-05 06:45] LABS: Hematocrit (blood only) 41.1 % (42-52); Hemoglobin 13.9 g/dL (14.0-18.0); Mean Corpuscular Hgb Conc 33.8 g/dL (32-36); Mean Corpuscular Volume 88.4 fL (80-100); Mean Platelet Volume 11.2 fL (7.4-10.4); Platelet Count 155 K/uL (130-400); RDW Coefficient of Variation 13.8 % (11.5-14.5); RDW Standard Deviation 44.4 fL (36.4-46.3); Red Blood Count 4.65 M/uL (4.7-6.1); White Blood Count 8.49 K/uL (4.8-10.8)
--- NOTE | 2018-11-05 07:14 | Orthopedic Progress Note ---
Date of Service November 05, 2018 Assessment & Plan (1) Status post total left knee replacement: PT/OT protocols today. Weightbearing as tolerated. DVT prophylaxis with SCDs, DAVID hose, aspirin twice daily. Continue current pain regimen with morphine, oxycodone, acetaminophen. Medical management as per [facility] physician group hospitalist service. D/c home w HH today. Subjective Patient is postop day 1 status post left total knee arthroplasty. He is currently sitting up in bed. He is awake and alert and oriented. He states that his pain has been controlled. He denies shortness of breath, chest pain, lightheadedness. He is noted to be tachycardic this morning. Hemoglobin is stable. Physical Exam 2 Vital Signs (Past 24 Hours): Last Vital Signs Temp 36.5 C 11/05/18 06:37 Pulse 107 H 11/05/18 06:37 Resp 18 11/05/18 06:37 BP 122/85 11/05/18 06:37 Pulse Ox 98 11/05/18 06:37 Physical Exam: Left knee silverlon dressing c/d/i, no drainage, no calf tenderness, toes and ankle mobile. A&Ox3.
[2018-11-05 07:18] LABS: BUN Creatinine Ratio 13.5 (10-20); Calcium 9.1 mg/dl (8.5-10.1); Creatinine Clr Calc Pharmacy 65.1 ml/min; Est GFR (African American) 62.1; Est GFR (Non-African American) 53.6; Potassium 4.4 mmol/L (3.5-5.1)
[2018-11-05] MEDS: DOCUSATE SODIUM 100 MG CAP PO SCH (07:53)
[2018-11-05] MEDS: MULTIVITAMIN TAB PO SCH (07:53)
[2018-11-05] MEDS: METFORMIN HCL 500 MG TAB PO SCH (07:53)
[2018-11-05] MEDS: FINASTERIDE 5 MG TAB PO SCH (07:54)
[2018-11-05] MEDS: ASPIRIN 81 MG ECTAB PO SCH (07:54)
[2018-11-05] MEDS: PANTOprazole 40 MG TAB PO SCH (07:54)
[2018-11-05] MEDS: LISINOPRIL 2.5 MG TAB PO SCH (07:54)
[2018-11-05] MEDS: SERTRALINE HCL 50 MG TABLET PO SCH (07:54)
[2018-11-05] MEDS: CeleBREX 200 MG CAP PO SCH (07:55)
[2018-11-05] MEDS: MODAFINIL 100 MG TAB PO SCH (07:56)
[2018-11-05] MEDS: INSULIN ASPART 100 UNITS/ML 3 ML PEN SC SCH (07:57)
--- NOTE | 2018-11-05 11:33 | Anesthesiology Progress Note ---
Date of Service November 04, 2018 Anesthesia Post Procedure Vital Signs Vital Signs: Temp Pulse Resp BP Pulse Ox 11/05/18 06:37 36.5 C 107 H 18 122/85 98 11/04/18 23:19 37.1 C 113 H 20 134/90 96 11/04/18 15:06 36.8 C 109 H 20 151/90 H 97 Pain Intensity Left Knee: Pain Intensity: 4 Notes Mental Status: alert / awake / arousable and participated in evaluation Patient Amnestic to Procedure: Yes Nausea / Vomiting: adequately controlled Pain: adequately controlled Airway Patency, RR, SpO2: stable & adequate BP & HR: stable & adequate Hydration State: stable & adequate Neuraxial Anesthesia: was administered and sensory block resolved Anesthetic Complications: no major complications apparent and Pt Satisfied with anesthetic care
[2018-11-05] MEDS: TRAMADOL HCL 50 MG TABLET PO PRN (11:57)
--- NOTE | 2018-11-05 12:00 | Hospitalist Progress Note ---
Date of Service November 05, 2018 Assessment & Plan (1) Tachycardia: No symptoms, likely secondary to pain/recovering from surgery. Patient did not lose a significant amount of blood following surgery, his blood pressure remains stable, he does not appear to be dehydrated. He is also adamant that he feels well and is ready to leave. Repeat EKG did not show significant changes from previous and was reviewed by myself and Dr. Dias. (2) S/P total knee arthroplasty: - pain monderately controlled - rec continuing around the clock tylenol, and oxy for breakthrough pain. - PT/OT per ortho - Bowel regimen per ortho - reports bm today - GI ppx with omeprazole (3) Diabetes type 2, controlled: - Trulicity usually on Saturday, forgot to take on 11/02. Continue - while here, will use Novolog SS and diabetic diet - Resume metformin and glipizide upon discharge. (4) Dyslipidemia: - continue Fenofibrate and Lipitor (5) BPH (benign prostatic hyperplasia): - continue finasteride and flomax (6) HTN (hypertension): - BP stable - Continue lisinopril 2.5 mg daily. (7) HLD (hyperlipidemia): - Cont statin therapy Dispo: ok for discharge from medical standpoint. Subjective I was asked to look into Mr. Rojas's tachycardia by surgery as they are ready to discharge him. Mr. Rojas has been running between 100 and 108. He denies chest pain, sob, palpitations or light headedness. He has mild pain in his knee but feels his pain is well controlled. He has been ambulating the halls with his walker and tolerating that well. Review of Systems All systems reviewed & are unremarkable except as noted in HPI & below Physical Exam 2 Vital Signs (Past 24 Hours): Last Vital Signs Temp 36.5 C 11/05/18 06:37 Pulse 107 H 11/05/18 06:37 Resp 18 11/05/18 06:37 BP 122/85 11/05/18 06:37 Pulse Ox 98 11/05/18 06:37 Physical Exam: General: no distress Eyes: normal inspection, PERLL Respiratory: chest non tender, clear to auscultation, normal breath sounds, no respiratory distress, no accessory muscle use Cardiac: regular rate and rhythm, no rub or gallop, no murmur, no edema, no jvd GI/: active bowel sounds, no abd pain or tenderness, soft, non distended Extremities: normal range of motion, normal strength, non tender Neuro/Psych: alert and oriented x 3, normal mood and affect Skin: normal color, dry, left knee dressing dry and intact
--- NOTE | 2018-11-06 08:11 | Discharge Summary ---
Date of Service November 19, 2018 Discharge Data Consultations 11/03/18 10:26 Consult Case Management - Discharge Planning Routine Consult Hospitalist Routine Procedures Performed Operation Date: 11/03/18 07:00 Actual Procedures p Left Total Knee Arthroplasty, cemented, Mike(Left) - Seven Wing MD
--- NOTE | 2018-11-18 12:39 | Discharge Summary ---
CHIEF COMPLAINT: Chronic left knee pain. HISTORY OF PRESENT ILLNESS: This is a 63-year-old male patient of Dr. Wing'dave complaining of chronic left knee pain, longstanding, progressively getting worse. He was diagnosed with end-stage osteoarthritis per clinical and radiographic exam. The patient had elected to proceed with a left total knee arthroplasty. PAST MEDICAL HISTORY: Heart murmur, hypercholesterolemia, sleep apnea with the use of CPAP, diabetes mellitus and kidney failure secondary to cancer. POSTOPERATIVE COURSE: The patient underwent a left total knee arthroplasty on 11/03/2018. He was followed closely with medical consultation, DVT prophylaxis in the form of aspirin, pain control and physical therapy. He did have some postoperative hypertension and tachycardia. EKG and repeat EKG before discharge showed no changes or ischemic changes and was probably due to the stress of the surgery and pain. Otherwise, an uneventful postoperative course. PHYSICAL EXAMINATION: On discharge, left knee Silverlon dressing was clean, dry and intact. There was no redness or drainage. He had no calf tenderness. Negative Homans sign. Toes and ankles were mobile. Neurologically and neurovascularly, he was intact in his left lower extremity. DIAGNOSES: Left knee end-stage osteoarthritis with a history of a heart murmur, hypercholesterolemia, sleep apnea with the use of CPAP, diabetes mellitus, kidney failure secondary to cancer. He also had some postoperative tachycardia and hypertension, attributed to pain and stress-related surgery. EKG was normal. PLAN: The patient was discharged home with home health services on postoperative day #2. He will continue his preadmission medications, aspirin for DVT prophylaxis and pain medications as needed. The patient will follow up as an outpatient as scheduled.
== END 2018-11-05 12:16 | disposition home health service (06) | DRG 470 ==
LOC: ASU 04:56 → 3E 10:30

== ENCOUNTER 2024-09-02 07:43 | Observation (INO) ==
--- NOTE | 2024-08-10 11:45 | PAT Medication Instructions ---
Medication Instructions Date of Service August 10, 2024 Home Medications Medication Instructions Recorded atorvastatin 40 mg tablet 40 mg PO HS #90 tabs 05/07/24 fenofibrate 160 mg tablet 160 mg PO HS #90 tabs 05/07/24 omeprazole 20 mg capsule,delayed 20 mg PO QAM #90 caps 05/07/24 release pen needle, diabetic 32 gauge x #100 ea 05/07/24 1/" (Novofine 32) finasteride 5 mg tablet 5 mg PO QAM #90 tabs 05/25/24 lisinopril 2.5 mg tablet 2.5 mg PO QAM #30 tabs 05/25/24 empagliflozin 25 mg tablet 25 mg PO QAM #90 tabs 06/08/24 dulaglutide 4.5 mg/0.5 mL 4.5 mg (0.5 mL) subcut .weekly #2 07/27/24 subcutaneous pen injector mL (Trulicity) cholecalciferol (vitamin D3) 50 mcg (2,000 unit) capsule 50 mcg PO QAM acetaminophen 325 mg tablet 975 mg PO Q6H PRN Pain atorvastatin 40 mg tablet 40 mg PO HS fenofibrate 160 mg tablet 160 mg PO HS omeprazole 20 mg capsule,delayed release 20 mg PO QAM finasteride 5 mg tablet 5 mg PO QAM lisinopril 2.5 mg tablet 2.5 mg PO QAM empagliflozin 25 mg tablet 25 mg PO QAM dulaglutide 4.5 mg/0.5 mL subcutaneous pen injector (Trulicity) 4.5 mg (0.5 mL) subcut .weekly aspirin 81 mg tablet,delayed release 81 mg PO QAM glimepiride 4 mg tablet 4 mg PO BID insulin degludec 100 unit/mL (3 mL) subcutaneous pen (Tresiba FlexTouch U-100 insulin) 35 unit subcut QAM omega 0-ghn-qmm-fish oil 60 mg-90 mg-500 mg capsule (Fish Oil) 1 cap PO BID sertraline 100 mg tablet (Zoloft) 200 mg PO QAM STOP taking 2 weeks before surgery omega 5-pyw-izm-fish oil 60 mg-90 mg-500 mg capsule (Fish Oil) 1 cap PO BID STOP taking at least 7 days before surgery dulaglutide 4.5 mg/0.5 mL subcutaneous pen injector (Trulicity) 4.5 mg (0.5 mL) subcut .weekly STOP taking 3 days before surgery empagliflozin 25 mg tablet 25 mg PO QAM STOP taking 48 hours before surgery fenofibrate 160 mg tablet 160 mg PO HS DO NOT take the morning of surgery cholecalciferol (vitamin D3) 50 mcg (2,000 unit) capsule 50 mcg PO QAM lisinopril 2.5 mg tablet 2.5 mg PO QAM glimepiride 4 mg tablet 4 mg PO BID Take morning of surgery With a small sip of water, OTHERWISE NOTHING TO EAT OR DRINK AFTER MIDNIGHT: acetaminophen 325 mg tablet 975 mg PO Q6H PRN Pain (if needed) omeprazole 20 mg capsule,delayed release 20 mg PO QAM finasteride 5 mg tablet 5 mg PO QAM aspirin 81 mg tablet,delayed release 81 mg PO QAM (unless surgeon directed otherwise) sertraline 100 mg tablet (Zoloft) 200 mg PO QAM Take evening before surgery acetaminophen 325 mg tablet 975 mg PO Q6H PRN Pain (if needed) atorvastatin 40 mg tablet 40 mg PO HS glimepiride 4 mg tablet 4 mg PO BID Insulin Dependent Diabetic Patients * Test your blood sugar the morning of surgery * If Blood Sugar is GREATER THAN 150, take HALF of your regular dose of: insulin degludec 100 unit/mL (3 mL) subcutaneous pen (Tresiba FlexTouch U-100 insulin) (17 units) * If Blood Sugar is LESS THAN 150, DO NOT TAKE ANY: insulin degludec 100 unit/mL (3 mL) subcutaneous pen (Tresiba FlexTouch U-100 insulin) Other Notes If you have any questions please call us at [phone] or [phone] or [phone] or [phone]
--- NOTE | 2024-08-19 11:00 | Anesthesiology Consultation ---
Date of Service August 19, 2024 Assessment & Plan (1) Encounter for pre-operative examination: - Awaiting review of preop testing (labs + albumin/A1C). ?? 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 - Check [facility] DOS - Infectious disease screening: Per assessment on 08/19/24- No known recent infectious disease contacts or current infectious disease symptoms. - Outpatient joint assessment: Pt currently scheduled for inpatient pathway. If surgeon requests review for outpatient joint pathway, patient is/is not acceptable candidate for outpatient joint program from anesthesia standpoint pending surgeon's office assessment that patient is motivated, has good support and completes Same Day Joint Program preop requirements. - S/P TURP (11/21/23): LMA igel#5 at [facility] Chart Review Chart Review: Patient seen in Pre Admission Testing Teaching & Discussion Pre-Anesthesia Teaching/Discussion Notes: Instructed NPO after midnight before surgery,except medications with 15 cc of water. Medication instructions pr ovided according to the PAT guidelines. History Surgery Operation Date: 09/02/24 11:15 Proposed Procedures p Right Shoulder Reverse Total Shoulder Arthroplasty - [place] MD Height/Weight Height: 5 ft 9 in Weight: 102.058 kg Allergies Allergy/AdvReac Type Severity Reaction Status Date / Time No Known Allergies Allergy Unknown Verified 08/10/24 08:35 Medications Home Medications Medication Instructions Recorded Confirmed Last Taken cholecalciferol (vitamin D3) 50 50 mcg PO QAM 12/01/21 08/10/24 11/14/23 19:00 mcg (2,000 unit) capsule acetaminophen 325 mg tablet 975 mg PO Q6H PRN Pain 04/30/24 08/10/24 Unknown atorvastatin 40 mg tablet 40 mg PO HS #90 tabs 05/07/24 08/10/24 Unknown fenofibrate 160 mg tablet 160 mg PO HS #90 tabs 05/07/24 08/10/24 Unknown omeprazole 20 mg capsule,delayed 20 mg PO QAM #90 caps 05/07/24 08/10/24 Unknown release pen needle, diabetic 32 gauge x #100 ea 05/07/24 Unknown 09/19" (Novofine 32) finasteride 5 mg tablet 5 mg PO QAM #90 tabs 05/25/24 08/10/24 Unknown lisinopril 2.5 mg tablet 2.5 mg PO QAM #30 tabs 05/25/24 08/10/24 Unknown empagliflozin 25 mg tablet 25 mg PO QAM #90 tabs 06/08/24 08/10/24 Unknown dulaglutide 4.5 mg/0.5 mL 4.5 mg (0.5 mL) subcut .weekly #2 07/27/24 08/10/24 Unknown subcutaneous pen injector mL (Trulicity) aspirin 81 mg tablet,delayed 81 mg PO QAM 08/10/24 08/10/24 Unknown release glimepiride 4 mg tablet 4 mg PO BID 08/10/24 08/10/24 Unknown insulin degludec 100 unit/mL (3 35 unit subcut QAM 08/10/24 08/10/24 Unknown mL) subcutaneous pen (Tresiba FlexTouch U-100 insulin) omega 3-njf-flc-fish oil 60 mg-90 1 cap PO BID 08/10/24 08/10/24 Unknown mg-500 mg capsule (Fish Oil) sertraline 100 mg tablet (Zoloft) 200 mg PO QAM 08/10/24 08/10/24 Unknown Past Medical History Medical History (Updated 08/19/24 @ 10:55 by Tamiko Manzo) Anxiety Cardiac murmur "As child" Mild AR on 2016 stress test CKD (chronic kidney disease) Follows with Dr. Emmy Ruggiero/[place] Depression (~2022) Diabetes mellitus, type 2 Dyslipidemia GERD (gastroesophageal reflux disease) Hearing deficit B/L hearing aids History of COVID-19 2022 HLD (hyperlipidemia) Hx of fall 04/2024 > [facility] with brain bleed, facial fractures was in trauma unit for 3 days, no interventions, all issues now resolved Hypertension IBS (irritable bowel syndrome) Obesity AMANDA (obstructive sleep apnea) CPAP Osteoarthritis Renal cell carcinoma 2007, s/p left nephrectomy (no chemo/XRT) Solitary kidney Solitary pulmonary nodule Per records Past Family History Family History Mother Family history of diabetes mellitus Cancer Father Family history of diabetes mellitus Hypertension Heart disease Brother Diabetes Myocardial infarction Sister Diabetes Non-Hodgkin lymphoma Other No family history of adverse response to anesthesia Denies family history of Ovarian cancer Prostate cancer Breast cancer Colorectal cancer Past Surgical History Surgical History (Updated 08/19/24 @ 10:55 by Tamiko Manzo) History of adenoidectomy History of carpal tunnel surgery of left wrist History of colonoscopy History of herniorrhaphy inguinal History of nephrectomy (~2007) left History of repair of rotator cuff R/L History of tonsillectomy Hx of transurethral resection of prostate TURP (11/21/23): LMA igel#5 at [facility] Hx of vasectomy S/P total knee arthroplasty left Social History Smoking Status: Never smoker Do You Dip or Chew Tobacco: No Hx Alcohol Use: Yes Alcohol type: hard liquor alcohol intake frequency: holidays/special occasions only Hx Substance Use: No substance use type: does not use Review of Systems Patient denies chest pain, shortness of breath, dyspnea on exertion, fever, chills, cough, wheezing, palpitations. Physical Exam Vital Signs BP P TEMP SP02 RESP Physical Full cervical extension range of motion. Full TMJ range of motion. TMD __ finger breaths Mallampati Score ___ Dentition: intact Lungs: clear throughout to auscultation Cardiac: regular rate and rhythm, no murmurs noted Spine: normal Carotid arteries: negative bruit Extremities: no LE edema Testing Electrocardiogram Date: 11/11/23 Sinus rhythm with 1st degree AV block, rate 96 bpm. Left anterior fascicular block. LVH. Cannot rule out septal infarct, cited on or before 05/19/14. Chest X-Ray Date: 04/27/24 Findings: + NAD
--- NOTE | 2024-08-19 11:35 | Anesthesiology Consultation ---
Date of Service August 19, 2024 Assessment & Plan (1) Encounter for pre-operative examination: - new bifascicular block: patient will need cardiology evaluation prior to surgery per discussion with Dr. Fournier. Patient's returned call as patient is working and unable to return call-information was relayed, she requested attempting [facility] first for availability, if none to then try [facility]. Surgeon's office made aware. - check [facility] am DOS. - awaiting [facility] clearance. Workload note sent to PCP. - dulaglutide instructions: Patient informed at PAT visit to stop 7 days prior to surgery-voiced understanding. Patient advised to check with prescriber to see if alternative diabetic management changes recommended while holding dulaglutide- if so, patient to call back to PAT to update chart and discuss if any further preop medication instructions needed. - Outpatient joint assessment: Patient is currently scheduled for inpatient pathway. If re-evaluated and patient/surgeon requests outpatient pathway, patient is not advised candidate for outpatient joint program from anesthesia standpoint pending surgeon's office assessment of pt motivation/support/completion of same day joint program preop requirements. Chart Review Chart Review: Pending: Refer to Additional Notes / Consult section and Patient seen in Pre Admission Testing Teaching & Discussion Pre-Anesthesia Teaching/Discussion Notes: Instructed NPO after midnight before surgery, except medications with 15 cc of water. Medication instructions provided according to the PAT guidelines. History Surgery Operation Date: 09/02/24 11:15 Proposed Procedures p Right Shoulder Reverse Total Shoulder Arthroplasty - Seven [place] MD Height/Weight Height: 5 ft 9 in Weight: 103 kg Allergies Allergy/AdvReac Type Severity Reaction Status Date / Time No Known Allergies Allergy Unknown Verified 08/10/24 08:35 Medications Home Medications Medication Instructions Recorded Confirmed Last Taken cholecalciferol (vitamin D3) 50 50 mcg PO QAM 12/01/21 08/10/24 11/14/23 19:00 mcg (2,000 unit) capsule acetaminophen 325 mg tablet 975 mg PO Q6H PRN Pain 04/30/24 08/10/24 Unknown atorvastatin 40 mg tablet 40 mg PO HS #90 tabs 05/07/24 08/10/24 Unknown fenofibrate 160 mg tablet 160 mg PO HS #90 tabs 05/07/24 08/10/24 Unknown omeprazole 20 mg capsule,delayed 20 mg PO QAM #90 caps 05/07/24 08/10/24 Unknown release pen needle, diabetic 32 gauge x #100 ea 05/07/24 Unknown 09/19" (Novofine 32) finasteride 5 mg tablet 5 mg PO QAM #90 tabs 05/25/24 08/10/24 Unknown lisinopril 2.5 mg tablet 2.5 mg PO QAM #30 tabs 05/25/24 08/10/24 Unknown empagliflozin 25 mg tablet 25 mg PO QAM #90 tabs 06/08/24 08/10/24 Unknown dulaglutide 4.5 mg/0.5 mL 4.5 mg (0.5 mL) subcut .weekly #2 07/27/24 08/10/24 Unknown subcutaneous pen injector mL (Trulicity) aspirin 81 mg tablet,delayed 81 mg PO QAM 08/10/24 08/10/24 Unknown release glimepiride 4 mg tablet 4 mg PO BID 08/10/24 08/10/24 Unknown insulin degludec 100 unit/mL (3 35 unit subcut QAM 08/10/24 08/10/24 Unknown mL) subcutaneous pen (Tresiba FlexTouch U-100 insulin) omega 2-qkw-uek-fish oil 60 mg-90 1 cap PO BID 08/10/24 08/10/24 Unknown mg-500 mg capsule (Fish Oil) sertraline 100 mg tablet (Zoloft) 200 mg PO QAM 08/10/24 08/10/24 Unknown Past Medical History Medical History (Updated 08/20/24 @ 13:36 by Kathy Jain PA-C) Anxiety Bifascicular block 08/19/24 EKG Cardiac murmur "As child" Mild AR on 2016 stress test CKD (chronic kidney disease) Follows with Dr. 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 records Dyslipidemia GERD (gastroesophageal reflux disease) Hearing deficit B/L hearing aids History of COVID-19 (~2022) denies hospitaliziation-symptoms resolved History of subdural hematoma (~04/2024) HLD (hyperlipidemia) Hx of fall 04/2024 > [facility] with subdural hematoma, facial fractures was in trauma unit for 3 days, no interventions, all issues now resolved per pt-S neurosurgery advised pt did not need f/u 05/20/24 Hypertension controlled, stable per pt IBS (irritable bowel syndrome) Obesity AMANDA (obstructive sleep apnea) CPAP-compliant Osteoarthritis Renal cell carcinoma 2007, s/p left nephrectomy (no chemo/XRT) Solitary kidney Solitary pulmonary nodule Per records Patient denies h/o stroke, seizures, heart attack, heart failure, DM, HTN, blood clots/DVTs or blood transfusions. Exercise / Class Metabolic Activity III < 4 Walking/Shop/Light housework (denies chest discomfort or shortness of breath with usual activities) Past Family History Family History Mother Family history of diabetes mellitus Cancer Father Family history of diabetes mellitus Hypertension Heart disease Brother Diabetes Myocardial infarction Sister Diabetes Non-Hodgkin lymphoma Other No family history of adverse response to anesthesia Denies family history of Ovarian cancer Prostate cancer Breast cancer Colorectal cancer Past Surgical History Surgical History History of adenoidectomy History of carpal tunnel surgery of left wrist History of colonoscopy History of herniorrhaphy inguinal History of nephrectomy (~2007) left History of repair of rotator cuff R/L History of tonsillectomy Hx of transurethral resection of prostate TURP (11/21/23): LMA igel#5 at [facility] Hx of vasectomy S/P total knee arthroplasty left Past Anesthesia History No Hx of Anesthesia Complications and No Family Hx of Anesthesia Complications History of PONV No Hx of PONV and Hx of Motion Sickness Social History Smoking Status: Never smoker Do You Dip or Chew Tobacco: No Hx Alcohol Use: No Alcohol type: hard liquor alcohol intake frequency: holidays/special occasions only Hx Substance Use: No substance use type: does not use Review of Systems Patient denies chest pain, shortness of breath, dyspnea on exertion, fever, chills, cough, wheezing, or palpitations. Physical Exam Vital Signs Vitals BP 125/83 P 100 (Pt reports some stress being at the medical center for appt today) SP02 95% on RA RESP 19 Physical Patient resting comfortably in chair in no acute distress, alert and oriented, responding appropriately throughout visit Full cervical extension range of motion without pain TMD 3.5 finger breadths Mallampati Score 3 Dentition: intact, denies chipped or loose teeth, caps/crowns, implants or bridges Lungs: normal respiratory effort. Good air movement, clear throughout to auscultation, no adventitious breath sounds Cardiac: regular rate and rhythm, no murmurs noted Carotid arteries: negative bruit bilat Lab Results Anesthesia Preop Results Results Anesthesia Widget: WBC 6.89 K/ul (4.8-10.8) 08/19/24 Hgb 16.5 g/dl (14.0-18.0) 08/19/24 Hct 49.5 % (42.0-52.0) 08/19/24 Plt 145 K/uL (130-400) 08/19/24 Na 135 mmol/L (136-145) L 08/19/24 K 4.2 mmol/L (3.5-5.1) 08/19/24 Cl 101 mmol/L (98-107) 08/19/24 CO2 26 mmol/L (21-32) 08/19/24 BUN 33 mg/dl (6-23) H 08/19/24 Creat 1.51 mg/dl (0.6-1.4) H 08/19/24 Glucose Level 302 mg/dl (70-99(Fasting)) H* 08/19/24 PT 10.3 Seconds (9.0-12.0) 08/19/24 PTT 24 Seconds (21-31) 08/19/24 INR 0.9 (0.9-1.1) 08/19/24 HA1c 7.5 % (4.5-5.6) H 08/19/24 Urine Color Yellow 08/19/24 Urine Appearance Clear (Clear) 08/19/24 Urine pH 5.5 (4.5-7.5) 08/19/24 Urine Specific [place] 1.027 (1.000-1.030) 08/19/24 Urine Protein Negative (Negative) 08/19/24 Urine Glucose (UA) 3+ (Negative) H 08/19/24 Urine Ketones Negative (Negative) 08/19/24 Urine Blood Negative (Negative) 08/19/24 Urine Nitrite Negative (Negative) 08/19/24 Urine Bilirubin Negative (Negative) 08/19/24 Urine Urobilinogen Negative (Negative) 08/19/24 Urine Leukocyte Esterase Negative (Negative) 08/19/24 Blood Type AB Positive 08/19/24 Antibody Screen NEGATIVE 08/19/24 Testing Laboratory Results Critical glucose called to Magdalena Rawls per lab. Electrocardiogram Date: 08/19/24 NSR, rate 96 bpm RBBB Left anterior fascicular block bifascicular block Minimal voltage criteria for LVH, may be normal variant Septal infarct cited on or before 05/19/14 Chest X-Ray Date: 08/19/24 1. No acute cardiopulmonary findings. 2. No change in a 1.9 cm right midlung nodule since chest radiograph of May 19, 2014. Although indeterminate, stability favors a benign etiology. Other Testing Head CT 04/27/24 Similar appearance of thin right parafalcine and right tentorial subdural hemorrhage without significant mass effect Chest CTA 08/29/23 No large PE Density seen on recent chest x-ray likely represents a calcified granuloma Evidence of previous granulomatous disease No focal consolidation. Atelectatic changes
--- NOTE | 2024-09-01 21:16 | History & Physical Report ---
Date of Service September 01, 2024 Assessment & Plan (1) Rotator cuff tear, right: Plan: Right shoulder posttraumatic failure of prior rotator cuff repair. He has a lot of tendinopathy of the rotator cuff and early osteoarthritis glenohumeral joint. Best option is to proceed with reverse shoulder replacement. Rotator cuff tear extent: complete Rotator cuff tear trauma status: traumatic Encounter type: initial encounter Qualified Code(s): S46.011A - Strain of muscle(s) and tendon(s) of the rotator cuff of right shoulder, initial encounter (2) Failure of rotator cuff repair: (3) Rotator cuff tear arthropathy of right shoulder: History of Present Illness Chief Complaint: Right shoulder pain and weakness after a fall Primary Care Provider: Neelima Landa DO 69-year-old male suffered a fall 04/27/2024 reinjured his right shoulder. Patient had rotator cuff repair surgery 2012 with rotator cuff repair subacromial compression distal clavicle excision biceps tenodesis extensive debridement of acute on chronic large tear. Patient now has pain and weakness. Patient denies headaches, sweats, fevers, chills, double vision, blurred vision, cough, sore throat, dysphagia, chest pain, sob, wheezing, n/v/d/c, numbness, tingling, fatigue, urinary symptoms, mood disorders. ROS positive for sleep apnea and CPAP use ,diabetes with insulin use, osteoarthritis including spine, acid reflux. Allergies Allergy/AdvReac Type Severity Reaction Status Date / Time No Known Allergies Allergy Unknown Verified 08/26/24 13:26 Home Medications Medication Instructions Recorded Confirmed Type cholecalciferol (vitamin D3) 50 50 mcg PO QAM 12/01/21 08/26/24 History mcg (2,000 unit) capsule acetaminophen 325 mg tablet 975 mg PO Q6H PRN Pain 04/30/24 08/26/24 History atorvastatin 40 mg tablet 40 mg PO HS #90 tabs 05/07/24 08/26/24 Rx fenofibrate 160 mg tablet 160 mg PO HS #90 tabs 05/07/24 08/26/24 Rx omeprazole 20 mg capsule,delayed 20 mg PO QAM #90 caps 05/07/24 08/26/24 Rx release finasteride 5 mg tablet 5 mg PO QAM #90 tabs 05/25/24 08/26/24 Rx lisinopril 2.5 mg tablet 2.5 mg PO QAM #30 tabs 05/25/24 08/26/24 Rx empagliflozin 25 mg tablet 25 mg PO QAM #90 tabs 06/08/24 08/26/24 Rx dulaglutide 4.5 mg/0.5 mL 4.5 mg (0.5 mL) subcut .weekly #2 07/27/24 08/26/24 Rx subcutaneous pen injector mL (Trulicity) aspirin 81 mg tablet,delayed 81 mg PO QAM 08/10/24 08/26/24 History release glimepiride 4 mg tablet 4 mg PO BID 08/10/24 08/26/24 History insulin degludec 100 unit/mL (3 35 unit subcut QAM 08/10/24 08/26/24 History mL) subcutaneous pen (Tresiba FlexTouch U-100 insulin) omega 4-ppk-eol-fish oil 60 mg-90 1 cap PO BID 08/10/24 08/26/24 History mg-500 mg capsule (Fish Oil) sertraline 100 mg tablet (Zoloft) 200 mg PO QAM 08/10/24 08/26/24 History pen needle, diabetic 32 gauge x #100 ea 08/31/24 Rx /" (Novofine 32) Past Med/Surg History Problem List (Updated 09/01/24 @ 21:15 by Seven Wing MD) Rotator cuff tear arthropathy of right shoulder Failure of rotator cuff repair Rotator cuff tear, right Microscopic colitis Encounter for pre-operative examination BPH (benign prostatic hyperplasia) Medical History Bifascicular block 08/19/24 EKG Disorder of sulfur-bearing amino acid metabolism per [facility] records History of subdural hematoma (~04/2024) Solitary pulmonary nodule Per records Renal cell carcinoma 2007, s/p left nephrectomy (no chemo/XRT) Obesity Solitary kidney Hx of fall 04/2024 > [facility] with subdural hematoma, facial fractures was in trauma unit for 3 days, no interventions, all issues now resolved per pt-[facility] neurosurgery advised pt did not need f/u 05/20/24 Hypertension controlled, stable per pt Anxiety AMANDA (obstructive sleep apnea) CPAP-compliant CKD (chronic kidney disease) Follows with Dr. Emmy Ruggiero/Richard Khan History of COVID-19 (~2022) denies hospitaliziation-symptoms resolved IBS (irritable bowel syndrome) Diabetes mellitus, type 2 IDDM HLD (hyperlipidemia) Dyslipidemia Osteoarthritis GERD (gastroesophageal reflux disease) Hearing deficit B/L hearing aids Depression (~2022) Cardiac murmur "As child" Mild AR on 2016 stress test Surgical History S/P total knee arthroplasty left Hx of transurethral resection of prostate TURP (11/21/23): LMA igel#[id number] at [facility] History of carpal tunnel surgery of left wrist History of repair of rotator cuff R/L Hx of vasectomy History of colonoscopy History of herniorrhaphy inguinal History of nephrectomy (~2007) left History of tonsillectomy History of adenoidectomy Family History Mother Family history of diabetes mellitus Cancer Father Family history of diabetes mellitus Hypertension Heart disease Brother Diabetes Myocardial infarction Sister Diabetes Non-Hodgkin lymphoma Other No family history of adverse response to anesthesia Denies family history of Ovarian cancer Prostate cancer Breast cancer Colorectal cancer Social History Smoking Status: Never smoker Second Hand Exposure: No; Do You Dip or Chew Tobacco: No; Tobacco Cessation Education Requested by Patient: No Hx Alcohol Use: No Hx Substance Use: No Preferred Language: Upper Sorbian 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 Ability: Effective Visual Impairment: Limited Hearing Ability: Normal Humanities Division Chair Required: No Beliefs That Will Affect Care: None marital status: Current Living Situation: Spouse current occupational status: employed 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 How many Children do You have: 2 Other Information That Helps Us Care for You: No Feels Safe at Home: Yes Safety Concerns: Feels Safe At This Time Childhood Exposure to Second-Hand Smoke: No Diet: regular caffeine: Yes during the past year weight has: remained stable Dental Care, Regularly: Yes Physical Activity Frequency: Daily Physical Activity Frequency Comment: job work Seatbelt Use: always Sunscreen Use: No Do you think of yourself as: straight/heterosexual Gender Identity: Male Assistive Devices: CPAP, Glasses and Hearing Aid - Bilateral Review of Systems All systems reviewed & are unremarkable except as noted in HPI & below Physical Exam Constitutional: WD/WN, vitals as above Respiratory: normal respiratory effort; no respiratory distress Cardiovascular: Rate/Rhythm: regular rate and regular rhythm Musculoskeletal: Right shoulder with old arthroscopic scars. Painful range of motion. Active flexion 170 degrees and abduction 90 degrees. Decreased shoulder strength with 3+ abduction. Distal neurocirculatory exam intact. Skin: no rashes, warm and dry Neurologic: normal touch/pain/proprioception Psychiatric: A+Ox3, euthymic affect Results & Data Diagnostic Findings MRI demonstrates posttraumatic failed rotator cuff repair with tendinopathy and partial tearing of the subscapularis. Early arthritis glenohumeral joint.
[~2024-09-02 07:43] MED LIST changes: -ASPI-232 PO; -ATOR-22 PO; +BUPIVACAINE 0.5 % 5 MG/1 ML PF 10ML VIAL ONE; -CLBCRM30 EXT; -EZET10TA63 PO; -FENO160T PO; -FLM4 PO; -GLIM2TAB2 PO; -LISI-789 PO; -METF500T5 PO; -MODA1TAB PO; -MULT-506 PO; -PARO1TAB29 PO; -PRLSR20 PO; -PSYL55.43; -SITA100T3 PO; -SOLI5TAB2 PO
[2024-09-02] MEDS ORDERED: ePHEDrine sulfate 50 MG/ML AMP ONE ×2 (08:03→11:35)
[2024-09-02] MEDS ORDERED: PROPOFOL IV EMULSION 10 MG/ML 20 ML VIAL IV ONE (08:10)
[2024-09-02] MEDS ORDERED: ROCURONIUM BROMIDE 10 MG/ML 5 ML VIAL IV ONE ×2 (08:10→11:47)
[2024-09-02] MEDS ORDERED: PHENYLEPHRINE HCL 10 MG/ML VIAL ONE (08:10)
[2024-09-02] MEDS ORDERED: DEXAMETHASONE SOD INJ 4 MG/ML VIAL ONE (08:11)
[2024-09-02] MEDS ORDERED: ONDANSETRON INJ 2 MG/ML 2 ML VIAL ONE (08:11)
[2024-09-02] MEDS ORDERED: MIDAZOLAM HCL 1 MG/ML 2ML VIAL ONE (08:23)
[2024-09-02] MEDS ORDERED: fentaNYL citrate PF 100 MCG/2 ML VIAL ONE (08:24)
[2024-09-02] MEDS: LR 60ML/HR IV SCH (08:32)
[2024-09-02] MEDS: GABAPENTIN 300 MG CAP PO SCH (08:33)
[2024-09-02] MEDS: METOCLOPRAMIDE HCL 10 MG TABLET PO SCH (08:33)
[2024-09-02] MEDS: LR 15ML/HR IV SCH (08:33)
[2024-09-02] MEDS: FAMOTIDINE 20 MG TAB PO SCH (08:33)
[2024-09-02] MEDS: CeleBREX 200 MG CAP PO SCH (08:33)
[2024-09-02] MEDS: ACETAMINOPHEN 500 MG TAB PO SCH ×2 (08:33→21:07)
[2024-09-02] MEDS ORDERED: ATROPINE SULFATE 0.1 MG/ML 10ML SYR IV PRN (09:31)
[2024-09-02] MEDS ORDERED: ePHEDrine sulfate 50 MG/ML AMP IV PRN (09:31)
[2024-09-02] MEDS ORDERED: fentaNYL citrate PF 100 MCG/2 ML VIAL IV PRN (09:31)
[2024-09-02] MEDS ORDERED: ONDANSETRON INJ 2 MG/ML 2 ML VIAL IV PRN ×2 (09:31→15:28)
--- NOTE | 2024-09-02 10:33 | History & Physical Bridge Note ---
Date of Service September 02, 2024 History & Physical Bridge Note I have examined the patient, reviewed the History & Physical and in the interval since the performance of the History & Physical I have noted the following changes of clinical significance: no changes noted
[2024-09-02] MEDS: TRANEXAMIC ACID 1,000 MG **IV Pre-op IV SCH (10:46)
[2024-09-02] MEDS: ceFAZolin 2000MG 2,000 MG/15 ML SYR IV SCH ×2 (11:29→20:57)
[2024-09-02] MEDS: TRANEXAMIC ACID 1,000 MG **IV Intra-op IV SCH (13:41)
[2024-09-02] MEDS ORDERED: SUGAMMADEX SODIUM 200 MG/2 ML VIAL IV ONE (14:05)
[2024-09-02] MEDS ORDERED: ESMOLOL HCL INJ 10 MG/ML 10ML VIAL IV ONE (14:05)
--- NOTE | 2024-09-02 14:10 | Post Operative Brief Note ---
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, rotator cuff tendinopathy, prior biceps tenodesis, prior rotator cuff repair I identified the patient and participated in the time-out.: Yes Procedure Operation Date: 09/02/24 09:40 Actual Procedures p Right Reverse Total Shoulder Arthroplasty(Right), removal suture anchors and suture material and bone grafting defects with humeral head autograft.- Seven Wing MD Surgeon Seven Wing MD Senior [employer] Howie SOLORZANO Estimated Blood Loss 200 Findings Consistent with Post-Op Diagnosis Specimens Humeral head Drains Hemovac Drain Anesthesia Type General Regional Complications none Disposition Disposition: Recovery Room Overlapping Procedure I was immediately available: during the entire case.
--- OUTSIDE RECORDS SUMMARY | 2024-09-02 14:17 | External Medical Summary | Summary of Care ---
Author Name Unknown Organization [facility] Address [address] [place] [address] Phone [phone] Care Team Providers Care Adjuster Name Role Phone Neelima Landa DO Primary Care Provider + Reason for Visit * Reason Onset Date Comments Medication Refill 08/31/2024 Encounter Details Date Type Department Care Team (Late st Contact Info) Description 08/31/2024 Refill [facility], [place] [address] [place] [id number] [place], [facility] [address] [place] [id number] Allergies No known active allergiesdocumented as of this encounter (statuses as of 08/31/2024) Medications LISINOPRIL 2.5 MG PO TABS Take 1 Tablet by mouth in the morning. Active ONETOUCH ULTRASOFT LANCETS MISC Use to check blood sugar up to four times daily Dx E11.9 100 Each 5 03/25/20 17 Active Glucose Blood (ONETOUCH ULTRA BLUE) STRP Check blood sugars up to three times daily and as needed. 1 Box Dosing Unit 11 03/25/20 17 Active [place]-3 Fatty Acids (FISH OIL) 1200 MG CAPS Take 2 Capsules by mouth every morning. Active Fenofibrate 160 MG Oral Tablet (Lofibra)Indicat ions:Hyperlipide marga Take 1 Tab by mouth daily. 90 Tab 3 03/27/20 21 Active Trulicity 1.5 MG/0.5ML Subcutaneous Solution Pen-injector (Dulaglutide)Ind ications:Type 2 diabetes mellitus with stage 3a chronic kidney disease, without long-term current use of insulin (HCC) Inject 1.5 mg under the skin once a week. 2 mL 5 04/21/20 21 Active Finasteride 5 MG Oral Tablet (Proscar)Indicat ions:BPH with obstruction/lowe r urinary tract symptoms Take 1 Tab by mouth daily. 90 Tab 3 05/08/20 21 Active Omeprazole 20 MG Oral Capsule Delayed Release (PriLOSEC)Indica tions:Gastroesop hageal reflux disease TAKE ONE CAPSULE BY MOUTH ONCE DAILY 90 Capsule 3 09/14/20 21 Active Vitamin D3 25 MCG (1000 UT) Oral Tablet (Vitamin D3) Take 1 Tablet by mouth in the morning. Active Acetaminophen 325 MG Oral Tablet (Tylenol) Take 3 Tablets by mouth every 6 hours. 30 Tablet 4 11:57 AM EDT 04/29/20 24 Active oxyCODONE HCl 5 MG Oral Tablet (Oxy IR) Take 1 Tablet by mouth every 4 hours as needed for severe pain 5 Tablet 4 11:57 AM EDT 04/29/20 24 Active Sertraline HCl 100 MG Oral Tablet (Zoloft)Indicati ons:Moderate episode of recurrent major depressive disorder (HCC) Take 2 Tablets by mouth in the morning. 30 Tablet 04/29/20 24 Active Atorvastatin Calcium 40 MG Oral Tablet (Lipitor) Take 1 Tablet by mouth at bedtime. 90 Tablet 1 4 4:21 PM EDT 05/07/20 24 Active Fenofibrate 160 MG Oral Tablet (Lofibra) Take 1 Tablet by mouth at bedtime. 90 Tablet 3 4 1:53 PM EDT 05/07/20 24 Active Finasteride 5 MG Oral Tablet (Proscar) Take 1 Tablet by mouth in the morning. 90 Tablet 3 05/07/20 24 Active Lisinopril 2.5 MG Oral Tablet (Prinivil) Take 1 Tablet by mouth in the morning. 30 Tablet 3 05/07/20 24 Active Omeprazole 20 MG Oral Capsule Delayed Release (PriLOSEC) Take 1 Capsule by mouth in the morning. 90 Capsule 3 4 4:22 PM EDT 05/07/20 24 Active AUM Mini Insulin Pen Needle 32G X 6 MM (NOVOFINE 32G PEN NEEDLE) As directed. Use once daily with tresiba 100 Each 4 12:11 PM EDT 05/07/20 24 Active Sertraline HCl 100 MG Oral Tablet (Zoloft) Take 2 Tablets by mouth daily. 180 Tablet 2 4 4:22 PM EDT 05/07/20 24 Active Finasteride 5 MG Oral Tablet (Proscar) Take 1 tablet by mouth daily in the morning 90 Tablet 3 4 2:05 PM EDT 05/25/20 24 Active Lisinopril 2.5 MG Oral Tablet (Prinivil) Take 1 tablet by mouth daily in the morning 30 Tablet 3 4 2:20 PM EST 05/25/20 24 Active Jardiance 25 MG Oral Tablet (Empagliflozin) Take 1 Tablet by mouth in the morning. 90 Tablet 3 4 12:11 PM EDT 06/08/20 24 Active Glimepiride 4 MG Oral Tablet (Amaryl) Take 2 Tablets by mouth in the morning. 180 Tablet 3 4 12:11 PM EDT 06/08/20 24 Active Insulin Degludec FlexTouch 100 UNIT/ML Subcutaneous Solution Pen-injector Inject 28 Units under the skin daily. 15 mL 1 4 2:20 PM EST 06/08/20 24 Active Trulicity 4.5 MG/0.5ML Subcutaneous Solution Pen-injector (Dulaglutide) Inject 4.5 mg under the skin once a week. 2 mL 1 4 2:21 PM EDT 06/29/20 24 Active Trulicity 4.5 MG/0.5ML Subcutaneous Solution Auto-injector (Dulaglutide) Inject 4.5 mg (0.5 mL) subcutaneously once weekly 2 mL 1 4 2:20 PM EST 07/27/20 24 Active Atorvastatin Calcium 40 MG Oral Tablet (Lipitor)Indicat ions:Dyslipidemi a, goal LDL below 100 Take 1 Tablet by mouth in the morning. 90 Tablet 3 08/05/20 24 Active documented as of this encounter (statuses as of 08/31/2024) Active Problems Problem Noted Date Diagnosed Date Cardiac murmur 04/28/2024 Fecal urgency 04/28/2024 Hearing deficit 04/28/2024 History of adenoidectomy 04/28/2024 History of nephrectomy 04/28/2024 History of tonsillectomy 04/28/2024 Hypertension 04/28/2024 IBS (irritable bowel syndrome) 04/28/2024 Incomplete bladder emptying 04/28/2024 Microscopic colitis 04/28/2024 Osteoarthritis 04/28/2024 Renal cell carcinoma 04/28/2024 Sleep apnea with hypersomnolence 04/28/2024 Solitary pulmonary nodule 04/28/2024 Status post total left knee replacement 04/28/20 24 Tachycardia 04/28/2024 Fall down steps 04/27/2024 Subdural hematoma 04/27/2024 Closed fracture of right zygomatic arch 04/27/20 24 Closed nondisplaced fracture of right side of fr ontal bone 04/27/2024 Right orbit fracture 04/27/2024 Chronic kidney disease, stage 3a 05/27/2023 Overview: Per CKD protocol Type 2 diabetes mellitus wit h stage 3a chronic kidney disease, without long-term current use of insulin 05/14/2023 Disorders of sulfur-bearing amino-acid metabolism, unspecified 05/14/2023 Current moderate episode of major depressive disorder without prior episode 06/13/2022 Type 2 diabetes mellitus wit h stage 3a chronic kidney disease 01/24/2021 Overview: Per CKD protocol S/P total knee arthroplasty 01/15/2019 OAB (overactive bladder) 08/10/2018 Tear of medial meniscus of knee 07/03/2018 Umbilical hernia without obstruction and without gangrene 09/29/2017 Impingement syndrome of shoulder region 12/07/19 17 Full thickness rotator cuff tear 11/29/2016 Hydrocele 04/27/2014 Overview (04/27/2014): Left. Dyslipidemia, goal LDL below 70 09/05/2009 History of kidney cancer 07/09/2008 Overview (09/29/2017): Ender Ritter: July 2008, clear cell renal carcinoma, Efrain grade 3 of 4, tumor located in upper pole, 1.8 centimeters in greatest dimension, no vascular invasion, all margins negative, no invasion of renal capsule Sleep apnea 04/01/2006 Overview (04/04/2007): On CPAP 12 cm H2o and provigil at am [address] prov prn Generalized anxiety disorder 04/01/2006 Gouty arthropathy 04/01/2006 BPH without obstruction/lower urinary tract symp toms 04/01/2006 Esophageal reflux 04/01/2006 BPH (benign prostatic hyperplasia) documented as of this encounter (statuses as of 08/31/2024) Resolved Problems Problem Noted Date Diagnosed Date Resolved Date Type 2 diabetes mellitus wit h stage 3a chronic kidney disease, without long-term current use of insulin 06/13/2022 06/28/2022 Diabetes mellitus with stage 3 chronic kidney disease 07/25/2020 01/26/2021 Overview: Per CKD protocol Type 2 diabetes mellitus wit h stage 3 chronic kidney disease, without long-term current use of insulin 03/28/2018 07/28/2020 Overview: Per CKD protocol Elevated blood uric acid level 05/03/2017 09/11/2017 Diarrhea 12/12/2014 05/13/2017 ARF (acute renal failure) 12/12/2014 Chronic kidney disease, stage 3a 04/06/2010 05/14/2023 Severe obesity with body mas s index (BMI) of 35.0 to 39.9 with serious comorbidity 12/12/2009 Overview (07/02/2018): Per Obesity Taxonomy, Dietitian willie sep07:PATIENT GOALS:[id number] kcal, 12 grams of sat fats. Decrease portion sizes. Eat slowly. Discussed restaurant portion sizes. Encouraged exer cise program. BMI: 35.44 kg/m?Lh lab 03-27-06: NMl CMP except ALT 62 ICD-10 update of inactive diagnosis Type 2 diabetes mellitus without complication 07/14/2003/28/2018 Type 2 diabetes mellitus wit h hemoglobin A1c goal of less than 7.0% 07/08/2007 07/14/2009 Overview (01/10/2016): Per Diabetes Taxonomy. : FBS 133, Insu -20, nml cbc, BMP, alt, 185/182/32/117, ur ac 5.4, TSh 1.87--A1c 6.9% ICD-10 update of inactive term Cervical spondylosis 08/26/2006 018 Overview (08/26/2006): :mild narrowing noted at C5-6 and C6-7 disk spaces. Mild posterior spurring at the C6-7 disk space suspect from the lateral projection Major depressive disorder 04/01/2006 Mixed dyslipidemia 04/01/2006 9 Overview (09/05/2009): Per Lipid Taxonomy. : LDl-D 77, TG 445, alt 49, restat tricor Jul 22: LDl 144 inc zocor to 80 mg, will Dc tricor Lh lab mar 27: TC 152,TG 144,HDl 32,ratio 4.75. ALT 62 ALt sep 21 53:OCT ,TSH 1.07; 05 LDL 101,hdl 29,TC 187,Tg 218,FBS 113.,nml cbc TSH Results: 08/13/06 1.80 FINAL Screening for prostate cancer 04/01/2006 09/29/2017 Overview (07/11/2007): PSA 1.21 03-27-06.,mar 20 1.76,---: 1.87 chr venous stasis. 04/01/2006 8 Overview (04/01/2006): Uses lasix prn Carpal tunnel syndrome 04/01/200609/29 Overview (04/01/2006): ABN NCS aug 20,was rec decompression ,FW INFORMATION 04/01/2006 09/29/2017 Overview (04/01/2006): Neg stress echo sep 2000 Special screening for malign ant neoplasms, colon 04/01/2006 09/29/2017 Overview (04/01/2006): Colonoscopy 03-03-04 : Diverticulosis sigmoid,Gr 1 int hem. OBESITY, UNSPECIFIED 04/01/2006 010 Overview (12/12/2009): Per Obesity Taxonomy, Dietitian willie may07:PATIENT GOALS:2528-6851 kcal, 12 grams of sat fats. Decrease portion sizes. Eat slowly. Discussed restaurant portion sizes. Encouraged exer cise program. BMI: 35.44 kg/m? lab 03-27-06: NMl CMP except ALT 62 documented as of this encounter (statuses as of 08/31/2024) Immunizations Name Administration Dates Next Due COVID-19 mRNA, LNP-s, No Pre serve, 2-Dose Series (Pfizer) 07/12/2021,12/20/2020,11/29/2020 Pneumococcal Conjugate Vacc, 13 Valent (Prevnar) 01/14/2017 Pneumococcal Polysaccharide PPV23 (Pneumovax) 08/09/2020,10/16/2010,07/11/2007,09/16 Season Influenza, Quad, PF, Adjuvanted, 65+ Yrs, IM (FLUAD) 06/28/2020 Seasonal Influenza Vac., MDV , IM, 0.5 mL (Fluzone) 07/02/2014,07/08/2013,05/23/2012,09/04,07/05/2010,06/30/2009,07/11/2007 ,08/13/2006,07/06/2005,06/17/2003,07/17 Seasonal Influenza, PF, 6 M & above, IM , (FluLaval or Fluzone) 07/16/2019,07/03/2018,06/28/2017 Seasonal Influenza, Quadriva lent, No Preserve, IM 08/10/2016,07/04/2015 TDAP, Age 7 and older, IM (Adacel) 10/16/2010, Zoster Vaccine Recombinant (Shingrix) 11/18/2019 ,09/11/2019 documented as of this encounter Social History Tobacco Use Types Packs/Day Years Used Date Smoking Tobacco: Never Smokeless Tobacco: Never Alcohol Use Standard Drinks/Week Comments Not Currently 0 (1 standard drink = 0.6 oz pur e alcohol) 1-2 times a yea; rare PHQ-2 Answer Date Recorded PHQ Adult Total Score 0 06/13/2022 Hunger Vital Sign Answer Date Recorded Worried About Running Out of Food in the Last Ye ar Not on file 05/08/2023 Within the past 12 months, t he food you bought just didn't last and you didn't have money to get more. Never true 05/08/2023 Childcare Answer Date Recorded Do you feel overwhelmed with taking care of a child, family member or friend? No 05/08/2023 Does your family need help f inding childcare? (Household - for ages 0-17 years) Not on file 05/08/2023 Clothing Answer Date Recorded Have you been unable to get clothing when it was really needed? No 05/08/2023 Is your family able to get c lothes or diapers when needed? (Household - for ages 0-17 years) Not on file 05/08/2023 Personal Safety Answer Date Recorded Do you feel unsafe or have concerns for your saf ety? No 04/27/2024 Do you have concerns for you r family's safety? (Household - for ages 0-17 years) Not on file 04/27/2024 Utilities Answer Date Recorded Do you have trouble paying y our heating, water, or electric bill? No 04/27/2024 Is your family able to pay t he heat, water, or electric bill? (Household - for ages 0-17 years) Not on file 04/27/2024 Does your family have access to good internet? (Household - for ages 0-17 years) Not on file 04/27/2024 Employment Status Answer Date Recorded Are you unemployed or without regular income? No 05/08/2023 Does the household have a re gular source of income? (Household - for ages 0-17 years) Not on file 05/08/2023 Social Connections Answer Date Recorded How often do you feel lonely or isolated from those around you? (Adult - for ages 18 years and over) Not on file 05/08/2024 Financial Resource Strain Answer Date R ecorded Do you have any trouble payi ng for your medications, or do you think you might in the future? No 05/08/2023 Does your family have troubl e paying for medicine? (Household - for ages 0-17 years) Not on file 05/08/2023 Transportation Needs Answer Date Record ed Do you have trouble getting a ride to medical visits or work? (Adult - for ages 18 years and over) Not on file 04/27/2024 Does your family have a hard time getting a ride to doctors visits? (Household - for ages 0-17 years) Not on file 04/27/2024 Has lack of transportation k ept you from medical appointments, meetings, work, or from getting things needed for daily living? Check all that apply. No 04/27/2024 Do you (or your family) have trouble finding or paying for a ride (transportation)? (Household - for ages 0-17 years) Not on file 04/27/2024 Housing Stability Answer Date Recorded Do you currently live in a s helter or have no steady place to sleep at night? (Adult - for ages 18 years and over) Not on file 04/27/2024 Do you think you are at risk of becoming homeless? (Adult - for ages 18 years and over) Not on file 04/27/2024 Does your family worry about paying for your home or becoming homeless? (Household - for ages 0-17 years) Not on file 0 04/27/2024 Are you homeless or worried that you might be in the future? No 04/27/2024 Are you (or your family) georgina eless or worried that you might be in the future? (Household - for ages 0-17 years) Not on file Food Insecurity Answer Date Recorded Do you need food for this week? No 04/27/2024 Are you able to get enough f ood for your family? (Household - for ages 0-17 years) Not on file 04/27/2024 Does your family need food t his week? (Household - for ages 0-17 years) Not on file 04/27/2024 Do you always have enough fo od for your family? (Household - for ages 0-17 years) Not on file 04/27/2024 Sex and Gender Information Value Date Recorded Sex Assigned at Male 06/11/2022 10:42 AM EDT Legal Sex Male 5:22 AM EST Gender Identity Male 06/11/2022 10:42 AM EDT Sexual Orientation Straight 06/11/2022 10 :42 AM EDT documented as of this encounter Functional Status * Are you deaf or do you have serious difficulty hearing? Answer Date of Assessment Author No 04/27/2024 5:00 PM EDT Ashley Martins RN * Are you blind or do you have serious difficulty seeing, even when wearing glasses? Answer Date of Assessment Author No 04/27/2024 5:00 PM EDT Ashley Martins RN * Do you have serious difficulty walking or climbing stairs? (5 years old or older) Answer Date of Assessment Author No 04/27/2024 5:00 PM EDT Tal Martins RN * Do you have difficulty dressing or bathing? (5 years old or older) Answer Date of Assessment Author No 04/27/2024 5:00 PM EDT Ashely Martins RN * Because of a physical, mental, or emotional condition, do you have difficulty doing errands alone such as visiting a doctors office or shopping? (15 years old or older) Answer Date of Assessment Author No 04/27/2024 5:00 PM EDT Ashely Martins RN documented as of this encounter Mental Status * Because of a physical, mental, or emotional condition, do you have serious difficulty concentrating, remembering, or making decisions? (5 years old or older) Answer Entry Date Author No 04/27/2024 5:00 PM EDT Ashley Martins RN documented in this encounter Miscellaneous Notes * Telephone Encounter - Sakshi Alves RPh - 08/31/2024 2:29 PM EST Entered in error documented in this encounter Plan of Treatment Upcoming Encounters Date Type Department Care Team (Late st Contact Info) Description 04/07/2025 8:20 AM EDT Office Visit [facility] [place] [address] [place] [id number] Bradford Trevizo PA-C [address] [place] [id number] Scheduled Procedures Name Priority Associated Diagnoses Date/Ti me COLONOSCOPY FLEXIBLE PROXIMA L DIAGNOSTIC Recall History of colonic polyps Health Maintenance Due Date Last Done Comments Cologuard 2000 Fecal Occult Blood Test 2000 Sigmoidoscopy 2000 DTap/Tdap Vaccines (3 - Td or Tdap) 10/16/2020 10/16/2010, 08/13/2006 Depression Monitoring 06/13/2023 06/13/2022 Colonoscopy 10/31/2023 10/31/2020, 06/16, 07/03/2019, Additional history exists Colorectal Cancer Screening 10/31/2023 COVID-19 Vaccine ( season) 2024 06/26/2024, 09/13/2023, 04/16/2022, Additional history exists HbA1c 10/29/2024 04/28/2024, 03/17, 02/15/2023, Additional history exists GFR 10/30/2024 04/29/2024, 04/16, 04/27/2024, Additional history exists Albumin/Creatinine Ratio 04/13/2025 024, 05/14/2019, 07/30/2016, Additional history exists B-12 04/13/2025 04/13/2024, 06/10/2022, 01/14/2021, Additional history exists Diabetic Eye Exam 04/13/2025 04/13/2024, , 04/15/2020, Additional history exists Diabetic Foot Exam 04/13/2025 04/13/2024, 0 02/24/2020, 05/14/2019, Additional history exists CKD HGB USE SMARTSET 84817 04/29/202504/29, 04/28/2024, 04/27/2024, Additional history exists CKD PHOS USE SMARTSET [id number] 04/29/2025 08/12/2023, 04/28/2024, 04/13/2024, Additional history exists Lipid Panel 04/13/2029 04/13/2024, 06/0 10/2022, 01/14/2021, Additional history exists Zoster Vaccines Completed 11/18/2019, 09/11/2019 Pneumococcal Vaccine: 65+ Years Completed 08/09/2020, 01/14/2017, 10/16/2010, Additional history exists Influenza Vaccine (FLU shot) Completed 07/2024, 06/28/2020, 07/16/2019, Additional history exists HPV (Gardasil) Vaccine Aged Out No lo nger eligible based on patient's age to complete this topic Hepatitis B Vaccine Aged Out No longe r eligible based on patient's age to complete this topic MENINGOCOCCAL (MENACTRA/MENVEO) Aged Out No longer eligible based on patient's age to complete this topic documented as of this encounter Medical Devices Not on filedocumented as of this encounter Advance Directives Documents on File Type Date Recorded 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 Question Answer Comments Discussion of Advance Directives occurred with: Patient * Full Code Date Activated Date Inactivated Comments 12/12/2014 3:35 PM 12/14/2014 6:02 PM This order r eflects the patients wishes and were consensually agreed upon. Question Answer Comments Discussion of Advance Directives occurred with: Not Discussed Does the patient have a Living Will? No Does the patient have Health Care Power of Attor anuradha? No Care Teams Adjuster Relationship Specialty Start Date End Date [facility] [address] [facility] [address] [facility] - General Family Medicine 08/29/23 documented as of this encounter
--- NOTE | 2024-09-02 14:34 | Operative Report ---
Post Operative Report Pre & Post Diagnosis Operation Date: 09/02/24 09:40 Pre-Op Diagnosis: Right Shoulder posttraumatic failure of Previous Rotator Cuff Repair, prior biceps tenodesis, prior arthroscopic rotator cuff repair Post-Op Diagnosis: Right Shoulder posttraumatic failure of Previous Rotator Cuff Repair, prior biceps tenodesis, prior arthroscopic rotator cuff repair with suture anchors old suture material. I identified the patient and participated in the time-out.: Yes Procedure Operation Date: 09/02/24 09:40 Actual Procedures p Right Reverse Total Shoulder Arthroplasty(Right), debridement and partial repair rotator cuff, excision old suture material and suture anchors and bone grafting defects with humeral head autograft cancellous bone.- Seven Wing MD Surgeon Seven Wing MD Adapted Physical Education Specialist Howie SOLORZANO Estimated Blood Loss 200 Findings Consistent with Post-Op Diagnosis Specimens Humeral head Drains 2 Hemovac Anesthesia Type General Regional Complications none Disposition Disposition: Recovery Room Indications 69-year-old male who suffered a fall 04/27/2024. He has had persistent pain and weakness since then. Index procedure was 2012 where he had a arthroscopic rotator cuff repair including a biceps tenodesis. Patient had acute on chronic tear at that time. Patient now has failed prior rotator cuff repair with rotator cuff tendinopathy including subscapularis tendinopathy. Description of Procedure The patient was taken to the operating room and anesthetized under regional block and general anesthetic. The patient was positioned on the operating table in a 30 beach chair position with a towel roll under the medial border of the right scapula. The arm was draped free to be able to manipulate the shoulder as needed. The right upper extremity was prepped and draped in usual sterile fashion. Exam demonstrated full range of motion with old healed arthroscopic scars. An anterior deltopectoral approach was performed. A longitudinal incision was made in the deltopectoral interval. The skin was incised sharply. Subcutaneous flaps were elevated off the fascia. The cephalic vein was dissected out and retracted lateral with the deltoid. The clavipectoral fascia was divided at the lateral margin of the conjoined tendon and extended up to the CA ligament. The following findings were noted: There is scarred bursa over the subscapularis tendon which is still intact but it was thin with tendinopathy. There was scarred bursal tissue near the supraspinatus with retracted tendon and bone fragment within the tendon. The infraspinatus was partially torn off the greater tuberosity and has some anterior and undersurface frayed tissue. Biceps tenodesis was still intact.. The upper centimeter of the pectoralis was released for inferior exposure. A self-retaining retractor was placed. The biceps tendon findings demonstrated the tenodesis was intact with the bicep secured in the upper bicipital groove with suture anchor repair. The thickened scarred bursal tissue over the rotator cuff was resected. The supraspinatus scar tissue and bone fragment were debrided and resected. The scarred rotatable tissue was released down to the glenoid. Subscapularis muscle fibers were split longitudinally at the level of the circumflex vessels. The circumflex vessels were identified and tied off with silk ties and divided laterally. A Kitner elevator was used to free up the inferior fibers of the subscapularis off of the capsule. The axillary nerve was identified with a tug test and protected with a blunt Brannon retractor between the nerve and the capsule. The subscapularis tendon was then taken down off of the lesser tuberosity subperiosteally, a Vicryl traction suture was placed and a subperiosteal dissection was performed along the neck of the humerus as the arm was gradually externally rotated exposing the humeral head. The humeral head findings demonstrated small inferior anterior and posterior osteophytes that were removed with a rongeur. A Blanco elevator was used to assist in releasing the capsule of the neck of the humerus. The capsule was divided with Darling scissors down to the glenoid starting in the rotatable area and obliquely releasing the capsule staying above the level of the axillary nerve proximally. The capsule was then released off the anterior glenoid. A Fukuda retractor was placed into the joint retracting the humeral head posterior. Glenoid findings demonstrated intact articular cartilage and labrum.. The labrum was resected. an anterior- inferior and posterior inferior capsular release were performed with electrocautery and a Blanco elevator on bone with the axillary nerve protected inferiorly by the retractor. Attention was then taken to the humeral preparation. The cutting guide was placed into the humeral head. It was positioned at 20 of retroversion. Oscillating saw was used to resect the humeral head giving the cut above the level of the posterior rotator cuff insertion site. The humerus was then prepared for the stem. First I had to remove multiple anchors and suture material using a rongeur and scalpel as needed. I used the ascend flex stem from [employer]. The sizing broaches were used followed by trial broaches up to a size 5B Long which had the appropriate fit and fill. The appropriate sized cut protector was placed. The humerus was then retracted posterior to the glenoid. The glenoid was sized for a 29 mm baseplate. The guide for the baseplate was positioned in a 10 inferior tilt a nd the central drill hole was made. The reamer for the 29 mm baseplate was used. The central drill was widened for the peg. The [employer] aequalis 29 mm hydroxyapatite coated standard post baseplate was impacted into position. Patient had solid bone and solid press-fit fixation. The base plate was transfixed with superior and inferior locking screws and anterior and posterior compression screws with stable fixation. The fan reamer was used for the 42 millimeter glenoid sphere. After irrigation the centered 42 mm glenoid sphere was impacted onto the baseplate and the security screw was tightened. Attention was taken back to the humerus. The cut protector was removed and the +0 high offset humeral tray trial was assembled to the trial stem rotated appropriately to get bony coverage and then screwed in position. A trial reduction was performed. A +6/42 mm trial insert demonstrated good stability and no shuck. The trials were removed. 3 drill holes are made into the harder bone in the bicipital groove area and 3 #5 FiberWire sutures were placed transosseously. The canal was irrigated with pulsatile saline solution. The final component was assembled. The final component was [employer] 5B long aequalis stem sent bold 2+0 high offset tray with a +6/46 mm polyethylene reversed insert. The defects from the anchors that were removed were now bone grafted with cancellous bone harvested from the humeral head. The humeral implant was then impacted into the humerus with a tight press-fit. It was reduced to the glenoid sphere. The infraspinatus tendon was repaired with transosseous sutures to the greater tuberosity with #2 FiberWire sutures to help enhance extra rotation strength. Stability was verified. Subscapularis was repaired with the #5 FiberWire sutures using Atul-Sylvester suture technique. Lateral row soft tissue repair was performed with #2 FiberWire [id number] sutures. The pectoralis was repaired with #2 FiberWire [id number] sutures. The arm was taken through a range of motion which demonstrated 170 degrees forward flexion 110 degrees abduction 70 degrees internal and external rotation without any tension on repair. The implant was stable through the range of motion tested. The wound including the joint were copiously irrigated using Xperience irrigation. 2 Hemovac drains were placed. The deltopectoral interval was closed with fig [id number] #1 Vicryl sutures. The subcutaneous tissues were closed with 2-0 Vicryl sutures. The skin was closed with surgical nadine. Silverlon sterile dressing was applied and a shoulder immobilizer. Howie SOLORZANO my physician resident assistant cna acted as cashier assistant throughout the procedure .He performed functions including patient positioning, arm positioning, prepping and draping, soft tissue retraction, instrument management, suture management and performed the subcutaneous and skin closure and will participate in the postoperative care of the patient. I attest to the content of the Intraoperative Record and any orders documented therein. Any exceptions are noted below.
--- NOTE | 2024-09-02 15:19 | Anesthesiology Progress Note ---
Date of Service September 02, 2024 Anesthesia Post Procedure Vital Signs Vital Signs: Temp Pulse Resp BP Pulse Ox O2 Del Method O2 Flow Rate 09/02/24 15:00 97.5 F L 96 H 14 113/82 94 Nasal Cannula 2 09/02/24 14:50 92 H 12 122/77 94 Nasal Cannula 3 09/02/24 14:40 90 14 118/80 95 Nasal Cannula 4 09/02/24 14:29 97.0 F L 95 H 14 113/74 94 Nasal Cannula 5 09/02/24 08:12 97.7 F 75 20 144/89 H 97 Room Air Pain Intensity Right Shoulder: Pain Intensity: 1 Transfer of Care Handoff Completed per policy Notes Mental Status: alert / awake / arousable and participated in evaluation Patient Amnestic to Procedure: Yes Nausea / Vomiting: adequately controlled Pain: adequately controlled Airway Patency, RR, SpO2: stable & adequate BP & HR: stable & adequate Hydration State: stable & adequate Anesthetic Complications: no major complications apparent and Pt Satisfied with anesthetic care
[2024-09-02] MEDS ORDERED: NON-FORMULARY MEDICATION (Dulaglutide [Trulicity] 4.5 mg/0.5 mL pen injector) SQ SCH (15:28)
[2024-09-02] MEDS ORDERED: HYDROmorphone INJ 0.5 MG/0.5 ML SYR IV PRN (15:28)
[2024-09-02] MEDS ORDERED: PHARMACY GLYCEMIC MGMT CONSULT PRN (15:28)
[2024-09-02] MEDS ORDERED: diphenhydrAMINE Capsule 25 MG CAP PO PRN (15:28)
[2024-09-02] MEDS ORDERED: METOCLOPRAMIDE HCL INJ 5 MG/ML 2 ML VIAL IV PRN (15:28)
[2024-09-02] MEDS ORDERED: MAGNESIUM HYDROXIDE SUSP 30 ML UDC PO PRN (15:28)
[2024-09-02] MEDS ORDERED: NALOXONE HCL 0.4 MG/1 ML VIAL/CARP IV PRN (15:28)
[2024-09-02] MEDS ORDERED: ALUMINUM/MAGNESIUM SUSP 30 ML UDC PO PRN (15:28)
[2024-09-02] MEDS ORDERED: bisacodyL 10 MG SUPP PR PRN (15:28)
--- NOTE | 2024-09-02 15:48 | XRay Report ---
XR shoulder RT min 2V routine CLINICAL HISTORY: Post shoulder surgery COMPARISON: None FINDINGS: Alignment of the reverse total right shoulder arthroplasty is anatomic. There is no peripr osthetic fracture or unexpected radiopaque foreign body. There are drains and skin nadine. IMPRESSION: Expected findings following reverse total right shoulder arthroplasty. ACT 112: Negative or not required by law. Electronically signed by: Jim Hicks M.D. 09/02/2024 3:46 PM
--- NOTE | 2024-09-02 15:54 | Hospitalist Consultation ---
Date of Consultation September 02, 2024 Assessment & Plan (1) Rotator cuff tear arthropathy of right shoulder: S/P Right Reverse Total Shoulder Arthroplasty(Right), debridement and partial repair rotator cuff, excision old suture material and suture anchors and bone grafting defects with humeral head autograft cancellous bone with Dr. Wing 09/02 Dvt proh/ post op abx/ pain control defer to primary team - however celebrex and toradol d/c per work ticket distributor recommendations for no NSAID - Primary team made aware EBL 200 - check AM CBC PT/OT/dispo - per primary (2) CKD (chronic kidney disease): hx of CKD secondary two diabetic nephropathy and hypertensive nephrosclerosis. h x of renal cancer, s/p nephrectomy Baseline Cr 1.5-1.7 - per work ticket distributor avoid NSAID and Bactrim post surgery Continue ASA , Vit D AM CMP (3) Hypertension: Hold lisinopril pending AM labs (4) Diabetes mellitus, type 2: Home medications: Jardiance, glimepiride, and Trulicity and insulin Recent A1c 7.5 Pharmacy glycemic consult per primary team (5) HLD (hyperlipidemia): Continue statin and fenofirate Plan Chronic stable medical conditions: * mental health - continue zoloft * BPH - continue finasteride Dispo: continued inpatient stay Thank you for allowing us to participate in the care of this patient, please reach out with any questions or concerns. Medicine will continue to follow. Supervising Physician Co-Signing Physician Notes Chart reviewed, case discussed with Tisha Calloway PA-C and I agree with the assessment and plan as above except as otherwise noted Labs and images reviewed Patient was not seen on day of consultation. Case was reviewed at length with JEANINE. No acute concerns, patient does have a history of CKD and is recommended to avoid further NSAIDs which have been discontinued. Pharmacy is following for glycemic management. No ongoing concern. Labs reviewed. Agree with above. History of Present Illness Reason for Consultation: medical management Requesting Physician: Dr. Wing Attending Physician: Seven Wing MD History of Present Illness Jhon is a 69M with a PMH significant for dyslipidemia, type 2 diabetes, obesity, AMANDA on CPAP qhs, CKD, renal cell carcinoma s/p left nephrectomy, hx of subdural hematoma after a mechanical fall in 04/2024, GERD, and osteoarthritis who presents to the hospital for elective shoulder surgery with Dr. Wing, the hospitalist team has been consulted for medical management. Patient seen lying in bed post operatively, main complaint that he is hungry. No pain currently, able to move fingers on operative side. Discussed constipation and pain medication - patient states he normally has diarrhea. Does not wear oxygen at home. Uses CPAP and has his machiene from home. Family present at bedside. Allergies Allergy/AdvReac Type Severity Reaction Status Date / Time No Known Allergies Allergy Unknown Verified 09/02/24 08:11 Home Medications Medication Instructions Recorded Confirmed Type cholecalciferol (vitamin D3) 50 50 mcg PO QAM 12/01/21 09/02/24 History mcg (2,000 unit) capsule acetaminophen 325 mg tablet 975 mg PO Q6H PRN Pain 04/30/24 09/02/24 History atorvastatin 40 mg tablet 40 mg PO HS #90 tabs 05/07/24 09/02/24 Rx fenofibrate 160 mg tablet 160 mg PO HS #90 tabs 05/07/24 09/02/24 Rx omeprazole 20 mg capsule,delayed 20 mg PO QAM #90 caps 05/07/24 09/02/24 Rx release finasteride 5 mg tablet 5 mg PO QAM #90 tabs 05/25/24 09/02/24 Rx lisinopril 2.5 mg tablet 2.5 mg PO QAM #30 tabs 05/25/24 09/02/24 Rx empagliflozin 25 mg tablet 25 mg PO QAM #90 tabs 06/08/24 09/02/24 Rx dulaglutide 4.5 mg/0.5 mL 4.5 mg (0.5 mL) subcut .weekly #2 07/27/24 09/02/24 Rx subcutaneous pen injector mL (Trulicity) aspirin 81 mg tablet,delayed 81 mg PO QAM 08/10/24 09/02/24 History release glimepiride 4 mg tablet 4 mg PO BID 08/10/24 09/02/24 History insulin degludec 100 unit/mL (3 35 unit subcut QAM 08/10/24 09/02/24 History mL) subcutaneous pen (Tresiba FlexTouch U-100 insulin) omega 7-vmi-var-fish oil 60 mg-90 1 cap PO BID 08/10/24 09/02/24 History mg-500 mg capsule (Fish Oil) sertraline 100 mg tablet (Zoloft) 200 mg PO QAM 08/10/24 09/02/24 History pen needle, diabetic 32 gauge x #100 ea 08/31/24 Rx 1/4" (Novofine 32) acetaminophen 500 mg tablet 500 mg PO Q6H PRN fever or pain 09/02/24 Rx (Tylenol Extra Strength) #90 tabs cefadroxil 500 mg capsule 500 mg PO Q12H #28 caps 09/02/24 Rx celecoxib 200 mg capsule (Celebrex) 200 mg PO BID #60 caps 09/02/24 Rx oxycodone 5 mg tablet 5 mg PO Q4H PRN pain #20 tabs 09/02/24 Rx Patient History Medical History Bifascicular block 08/19/24 EKG Disorder of sulfur-bearing amino acid metabolism per [facility] records History of subdural hematoma (~04/2024) Solitary pulmonary nodule Per records Renal cell carcinoma 2007, s/p left nephrectomy (no chemo/XRT) Obesity Solitary kidney Hx of fall 04/2024 > [facility] with subdural hematoma, facial fractures was in trauma unit for 3 days, no interventions, all issues now resolved per pt-[facility] neurosurgery advised pt did not need f/u 05/20/24 Hypertension controlled, stable per pt Anxiety AMANDA (obstructive sleep apnea) CPAP-compliant CKD (chronic kidney disease) Follows with Dr. Emmy Ruggiero/[place] History of COVID-19 (~2022) denies hospitaliziation-symptoms resolved IBS (irritable bowel syndrome) Diabetes mellitus, type 2 IDDM HLD (hyperlipidemia) Dyslipidemia Osteoarthritis GERD (gastroesophageal reflux disease) Hearing deficit B/L hearing aids Depression (~2022) Cardiac murmur "As child" Mild AR on 2016 stress test Surgical History S/P total knee arthroplasty left Hx of transurethral resection of prostate TURP (11/21/23): LMA igel#5 at [facility] History of carpal tunnel surgery of left wrist History of repair of rotator cuff R/L Hx of vasectomy History of colonoscopy History of herniorrhaphy inguinal History of nephrectomy (~2007) left History of tonsillectomy History of adenoidectomy Family History Mother Family history of diabetes mellitus Cancer Father Family history of diabetes mellitus Hypertension Heart disease Brother Diabetes Myocardial infarction Sister Diabetes Non-Hodgkin lymphoma Other No family history of adverse response to anesthesia Denies family history of Ovarian cancer Prostate cancer Breast cancer Colorectal cancer Social History Smoking Status: Never smoker Second Hand Exposure: No; Do You Dip or Chew Tobacco: No; Tobacco Cessation Education Requested by Patient: No Hx Alcohol Use: No Hx Substance Use: No Preferred Language: American 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 Ability: Effective Visual Impairment: Limited Hearing Ability: Normal Hack Saw Operator Required: No Beliefs That Will Affect Care: None marital status: Current Living Situation: Spouse current occupational status: employed 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 How many Children do You have: 2 Other Information That Helps Us Care for You: No Feels Safe at Home: Yes Safety Concerns: Feels Safe At This Time Childhood Exposure to Second-Hand Smoke: No Diet: regular caffeine: Yes during the past year weight has: remained stable Dental Care, Regularly: Yes Physical Activity Frequency: Daily Physical Activity Frequency Comment: job work Seatbelt Use: always Sunscreen Use: No Do you think of yourself as: straight/heterosexual Gender Identity: Male Assistive Devices: CPAP, Glasses and Hearing Aid - Bilateral Review of Systems Review of Systems: All systems reviewed & are unremarkable except as noted in Subjective Physical Exam Physical Exam: General: NAD, VS as above Resp: normal respiratory effort, lungs clear to auscultation, weaned down to 1L maintaining 96% CV: RRR, no murmur, Abd: normal bowel sounds, non tender, soft Extremities: left arm in sling, able to move fingers distally, drain in place Neuro: A&O x3, Results & Data Results & Data Vital Signs (Past 12 Hours) Vital Signs Temp Pulse Pulse Resp BP Pulse Ox O2 Del Method 09/02/24 15:20 97.5 F L 91 H 18 133/82 95 Nasal Cannula 09/02/24 15:00 97.5 F L 96 H 14 113/82 94 Nasal Cannula 09/02/24 14:50 92 H 12 122/77 94 Nasal Cannula 09/02/24 14:40 90 14 118/80 95 Nasal Cannula 09/02/24 14:29 97.0 F L 95 H 14 113/74 94 Nasal Cannula 09/02/24 08:12 97.7 F 75 20 144/89 H 97 Room Air O2 Flow Rate 09/02/24 15:20 2 09/02/24 15:00 2 09/02/24 14:50 3 09/02/24 14:40 4 09/02/24 14:29 5 09/02/24 08:12 Laboratory Results POC glucose reviewed Diagnostic Findings xray reviewed PG Care Time/CCT Total # of Minutes Spent Total Time Spent with Patient: Total time spent is greater than 50% in coordination of care (as documented) at patient's floor/unit and/or counseling patient: Coding Level of Care Code 50058 IN/OBS CONSULT LVL 3,45M Diagnoses Rotator cuff tear arthropathy of right shoulder M75.101; M12.811 CKD (chronic kidney disease) N18.9 Hypertension I10 Diabetes mellitus, type 2 E11.9 HLD (hyperlipidemia) E78.5
[2024-09-02] MEDS: INSULIN ASPART PER UNIT CHARGE SC SCH (17:31)
--- NOTE | 2024-09-02 18:03 | Pharmacy Report ---
Pharmacy Glycemic Short Note 2 - Date of Service September 02, 2024 - Glycemic Short BSG Results (Last 24 hours): 09/02/24 09/02/24 09:44 16:24 POC Glucose 119 H 134 H OUTPATIENT ANTIDIABETIC REGIMEN: * Tresiba 35units Q AM * Trulicity 4.5mg SQ weekly * Jardiance 25mg QAM * glimepiride 4mg po bid HbA1c 7.5% on 08/19/24 ASSESSMENT: * 69 year old male admitted for right reverse total shoulder arthroplasty (POD#0 ). Pharmacy was consulted for glycemic management postop. * He received 35 units of Tresiba preop. BSG was 119mg/dL preop and 134mg/dL post op (reportedly after eating pudding). Will not give additional long acting insulin at this time based on the post op BSG. * A diet was ordered to start with dinner tonight so weight based (using adjusted bodyweight) bolus insulin dosing with a stress of 2 was ordered to start at that time. Additional overnight checks were ordered incase his BSGs start to rise overnight (it does appear that he got dexamethasone preop). PLAN FOR INPATIENT GLYCEMIC CONTROL: * Hold diabetes medications * Basal insulin * No further dose tonight, will reassess tomorrow morning. * Bolus insulin * NovoLog per scale ACHS or Q6hrs while NPO * Goal Range: Low 110 mg/dL - High 140 mg/dL * Correction Factor: 30 mg/dL/unit * Nutritional / Prandial insulin per carb ratio of 1 unit per 9 grams CHO consumed
[2024-09-02] MEDS: OMEGA-3 (PURIFIED FISH OIL) 1 GM CAP PO SCH (20:56)
[2024-09-02] MEDS: DOCUSATE SODIUM 100 MG CAP PO SCH (20:56)
[2024-09-02] MEDS: SENNA 8.6 MG TAB PO SCH (20:56)
[2024-09-02] MEDS: FENOFIBRATE NANOCRYSTALLIZED 145 MG TABLET PO SCH (20:56)
[2024-09-02] MEDS: ATORVASTATIN 40 MG TAB PO SCH (20:57)
[2024-09-02] MEDS ORDERED: GLIMEPIRIDE 2 MG TAB PO SCH (21:00)
[2024-09-02] MEDS: TRANEXAMIC ACID / 0.7% NACL 1,000 MG/100 ML BAG IV SCH (21:00)
[2024-09-03] MEDS: INSULIN ASPART PER UNIT CHARGE SC SCH (00:27)
[2024-09-03 07:19] LABS: Basophils # (auto) 0.02 K/uL (0.00-0.20); Basophils % (auto) 0.2 %; Eosinophils % (auto) 1.2 %; Hematocrit (blood only) 40.7 % (42.0-52.0); Hemoglobin 13.5 g/dl (14.0-18.0); Immature Granulocytes # (auto) 0.03 K/uL (0.01-0.20); Immature Granulocytes % (auto) 0.4 %; Lymphocytes # (auto) 0.79 K/uL (1.20-3.40); Lymphocytes % (auto) 9.3 %; Mean Corpuscular Hemoglobin 28.3 pg (25.0-34.0); Mean Corpuscular Hgb Conc 33.2 g/dL (32.0-36.0); Mean Corpuscular Volume 85.3 fL (80.0-100.0); Mean Platelet Volume 11.6 fL (9.4-12.4); Monocytes # (auto) 0.79 K/uL (0.11-0.59); Monocytes % (auto) 9.3 %; Neutrophils % (auto) 79.6 %; Platelet Count 128 K/uL (130-400); RDW Coefficient of Variation 13.7 % (11.5-14.5); RDW Standard Deviation 42.4 fL (36.4-46.3); Red Blood Count 4.77 M/uL (4.70-6.10); White Blood Count 8.53 K/ul (4.8-10.8)
[2024-09-03 07:29] LABS: BUN Creatinine Ratio 20.6 (10-20); Calcium 8.8 mg/dl (8.6-10.3); Creatinine Clr Calc Pharmacy 60.7 ml/min; Potassium 4.4 mmol/L (3.5-5.1)
[2024-09-03 07:58] VITALS: BP 131/70; PULSE 76; RESP 20; TEMP 98.2; O2SAT 95
--- NOTE | 2024-09-03 08:01 | Orthopedic Progress Note ---
Date of Service September 03, 2024 Assessment & Plan (1) Rotator cuff tear, right: Plan: Right shoulder posttraumatic failure of prior rotator cuff repair. He has a lot of tendinopathy of the rotator cuff and early osteoarthritis glenohumeral joint. Best option is to proceed with reverse shoulder replacement. Postop day 1 reverse shoulder replacement right shoulder. Patient stable and okay for discharge today. Drain can be DC'd. Will do home exercises for a few weeks and then start outpatient PT. Patient can be discharged after seen by OT PT and drain DC'd. (2) Failure of rotator cuff repair: (3) Rotator cuff tear arthropathy of right shoulder: Admission and Anticipated Discharge Date Admission Date: September 02, 2024 Subjective No pain at all still under effects of nerve block Review of Systems Review of Systems: Feels well no chest pain shortness of breath Physical Exam Musculoskeletal: Silverlon dressing dry intact. Patient still some numbness in the thumb index and long finger but has motor function back in his hand and good radial pulse. Results & Data Vital Signs (Past 12 Hours) Vital Signs Temp Pulse Resp BP Pulse Ox O2 Del Method 09/03/24 07:57 36.8 C 76 20 131/70 95 Room Air 09/03/24 04:05 36.4 C L 84 18 123/77 93 Room Air 09/03/24 00:24 36.4 C L 89 20 109/66 93 Room Air Diagnostic Findings Well aligned reverse total shoulder replacement (1) Rotator cuff tear, right Rotator cuff tear extent: complete Rotator cuff tear trauma status: traumatic Encounter type: initial encounter Qualified Code(s): S46.011A - Strain of muscle(s) and tendon(s) of the rotator cuff of right shoulder, initial encounter
[2024-09-03] MEDS: PANTOprazole 40 MG TAB PO SCH (08:39)
[2024-09-03] MEDS: lisinopril 2.5 MG TAB PO SCH (08:39)
[2024-09-03] MEDS: FINASTERIDE 5 MG TAB PO SCH (08:39)
[2024-09-03] MEDS: MULTIVITAMIN TAB PO SCH (08:39)
[2024-09-03] MEDS: ASPIRIN 81 MG ECTAB PO SCH (08:39)
[2024-09-03] MEDS: SERTRALINE HCL 100 MG TABLET PO SCH (08:39)
[2024-09-03] MEDS: CHOLECALCIFEROL 25 MCG (1000 UNITS) TAB PO SCH (08:39)
[2024-09-03] MEDS: LANTUS PER UNIT CHARGE SC SCH (08:48)
[2024-09-03] MEDS ORDERED: NON-FORMULARY MEDICATION (Omeprazole 20 mg capsule,delayed release(DR/EC)) PO SCH (09:00)
[2024-09-03] MEDS ORDERED: EMPAGLIFLOZIN 25 MG TAB PO SCH (09:00)
[2024-09-03] MEDS ORDERED: NON-FORMULARY MEDICATION (Insulin Degludec [Tresiba Flextouch U-100] 100 unit/mL (3 mL) in SQ SCH (09:00)
[2024-09-03] MEDS: oxyCODONE HCL IR 5 MG TAB (IMMEDIATE RELEASE) PO PRN (11:18)
[2024-09-03] MEDS ORDERED: KETOROLAC TROMETHAMINE 15 MG/ML VIAL IV PRN (14:30)
[2024-09-03] MEDS ORDERED: CeleBREX 200 MG CAP PO SCH (21:00)
== END 2024-09-03 11:44 | disposition home or self-care (01) ==
LOC: ASU 07:43 → 3E 07:43
DX: W19.XXXA Unspecified fall, initial encounter; Z87.39 Personal history of other diseases of the musculoskeletal system and connective tissue; I45.2 Bifascicular block; S46.011A Strain of muscle(s) and tendon(s) of the rotator cuff of right shoulder, initial encounter; Z79.82 Long term (current) use of aspirin; Q60.0 Renal agenesis, unilateral; N18.9 Chronic kidney disease, unspecified; M19.90 Unspecified osteoarthritis, unspecified site; Z79.899 Other long term (current) drug therapy; I12.9 Hypertensive chronic kidney disease with stage 1 through stage 4 chronic kidney disease, or unspecified chronic kidney disease